=== PATIENT | male | born 1965 | race Caucasian/White ===

== ENCOUNTER → 2016-04-18 | Outpatient (CLI) | payer BC ==
--- NOTE | 2016-04-18 19:29 | CT ---
EXAMINATION TYPE: CT abdomen pelvis wo con DATE OF EXAM: 04/18/2016 7:22 PM COMPARISON: NONE HISTORY: Left lower Quadrant pain with bowel changes CT DLP: 677 mGycm Automated exposure control for dose reduction was used. TECHNIQUE: Helical acquisition of images was performed from the lung bases through the pelvis. FINDINGS: The lung bases are clear. There is no pleural effusion. Heart size is normal. There are numerous cysts throughout the liver that measure up to 2.5 cm. Bile ducts are not dilated. There is no sign of a pancreatic mass. Spleen appears normal. Gallbladder appears normal. There is no adrenal mass. Kidneys have normal size and contour. There is no hydronephrosis. There is no retroperitoneal adenopathy. There is no ascites. The appendix appears normal. I see no intestinal wall thickening. There are no dilated loops. There are mild prostatic calcifications. Bladder distend s smoothly. There is no evidence of pelvic mass. I see no bony destructive process.. IMPRESSION: NUMEROUS HEPATIC CYSTS. NO DILATED DUCTS. NORMAL APPENDIX. NO SIGN OF ACUTE ABDOMEN AND PELVIS.
== END | disposition home or self-care (01) ==
LOC: RADCTMAIN 04-17 18:30
PROVIDERS: ATTEND Family Medicine
DX: K76.89 Other specified diseases of liver (principal)
CPT/HCPCS: 74176

== ENCOUNTER → 2016-07-08 | Day surgery (SDC) | payer BC ==
[2016-07-03 15:11] VITALS: BMI 23.6
[~2016-07-08] MED LIST: GLYCOPYRROLATE 0.2 MG/ML 2 ML VIAL ONE; LACTATED RINGERS 1,000 ML IV SCH; LIDOCAINE 1% INJ 10MG/ML (20 ML MDV) ONE; PROPOFOL 10 MG/ML 20 ML VIAL IV ONE
[2016-07-08 09:55] VITALS: TEMP 98.1
--- NOTE | 2016-07-08 11:20 | P.GSHP ---
History of Present Illness H&P Date: 07/08/16 Chief Complaint: GERD, screening colonoscopy This is a 50-year-old male referred from Dr. Traore nc. Patient points of GERD. He presents today for EGD and screening colonoscopy. - Constitutional Constitutional: Reports as per HPI Past Medical History Past Medical History: No Reported History Additional Past Medical History / Comment(s): pain LLQ Abdomen History of Any Multi-Drug Resistant Organisms: None Reported Past Surgical History: Orthopedic Surgery Additional Past Surgical History / Comment(s): lt hand surgery, bijal. carpal tunnel, rt shoulder scope Past Anesthesia/Blood Transfusion Reactions: No Reported Reaction Smoking Status: Former smoker Past Alcohol Use History: Daily Additional Past Alcohol Use History / Comment(s): smoked 6-7 years 1ppd quit 8- 10 years ago, after quiting smoking used snuff until 2016. drinks 4 beers/day Past Drug Use History: None Reported - Past Family History Brother(s) Family Medical History: Cancer, Deep Vein Thrombosis (DVT) Medications and Allergies Home Medications Medication Instructions Recorded Confirmed Type No Known Home Medications [No 07/03/16 07/08/16 History Known Home Medications] Allergies Allergy/AdvReac Type Severity Reaction Status Date / Time No Known Allergies Allergy Verified 07/08/16 09:52 Surgical - Exam Vital Signs Temp Pulse Resp BP Pulse Ox 98.1 F 57 L 16 152/90 98 07/08/16 09:54 07/08/16 09:54 07/08/16 09:54 07/08/16 09:54 07/08/16 09:54 - General well developed, no distress - Eyes PERRL - ENT normal pinna - Neck no masses - Respiratory normal expansion - Cardiovascular Rhythm: regular - Abdomen Abdomen: soft, non tender Assessment and Plan Plan: GERD. We'll perform EGD. We'll also perform screening colonoscopy
--- NOTE | 2016-07-08 11:45 | P.OP ---
Date of Procedure: 07/08/16 Preoperative Diagnosis: GERD Screening colonoscopy Postoperative Diagnosis: Mild antral gastritis No evidence of hiatal hernia Normal colon Procedure(s) Performed: EGD Colonoscopy Anesthesia: MAC Surgeon: Sharath Major Pathology: other (Antrum) Condition: stable Disposition: PACU Description of Procedure: PROCEDURE: The patient was placed on the endoscopy table in the lateral position. Digital rectal examination was performed which revealed no abnormalities. The prostate was symmetrical without nodules. Flexible colonoscope was then placed in the patient's anus and passed throughout the entire colon. The ileocecal valve was visualized. The cecum, ascending, transverse, descending and sigmoid colon were normal. The rectum was normal as well. There were no masses, polyps or diverticula noted in the entire colon. Next the gastroscope some placed oropharynx and passed into the esophagus and into the stomach. The scope was then placed through the pylorus. The first and second portion of the duodenum appeared normal. The scope was then brought back the antrum and this appeared mildly inflamed. A biopsy was performed. The scope was then retroflexed and the remainder stomach appeared normal. There is no significant hiatal hernia. The GE junction was at 47 is. The distal esophagus appeared mildly inflamed a biopsies was performed. The proximal esophagus. Normal. Scope was withdrawn for patient.
[2016-07-08 12:09] VITALS: RESP 16
[2016-07-08 12:51] VITALS: BP 115/75; PULSE 48
--- NOTE | 2016-07-09 08:39 | NM ---
EXAMINATION TYPE: NM hepatobiliary w EF DATE OF EXAM: 07/08/2016 3:49 PM COMPARISON: NONE HISTORY: Pain TECHNIQUE: After the intravenous administration of 5.4 mCi Tc 99m Mebrofenin hepatobiliary scintigrap hy is performed. Immediate images post injection. FINDINGS: There is satisfactory initial accumulation of tracer by the liver. The gallbladder is visualized wit hin 30 minutes. The small bowel activity is noted post 60 minutes. At one hour 8 ounces of oral ens ure plus is given to mimic CCK and gallbladder ejection fraction is calculated at 84 %, in the normal range. Therefore there is no scintigraphic evidence of cystic or common bile duct obstruction to walker ggest acute cholecystitis or gallbladder dyskinesia. IMPRESSION: 1. No diagnostic evidence of cholecystitis 2. Delayed biliary to bowel transit. 3. Ejection fraction of 84% which can occasionally be seen with hyperdynamic gallbladder. Correlate c linically.
== END | disposition home or self-care (01) ==
LOC: ORWHC2ENDO 08:38
PROVIDERS: ATTEND Surgery
DX: Z12.11 Encounter for screening for malignant neoplasm of colon (principal); K29.50 Unspecified chronic gastritis without bleeding; R52 Pain, unspecified; Z87.891 Personal history of nicotine dependence
CPT/HCPCS: 88305; 88342; 78226; 43239; A9537; J2001; J2704; G0121

== ENCOUNTER 2016-08-05 08:16 | Day surgery (SDC) | payer BC ==
[2016-08-01 09:05] VITALS: BMI 23.6
[~2016-08-05 08:16] MED LIST changes: +DEXAMETHASONE SOD PHOSPHATE 10 MG/ML 1 ML VIAL IV ONE; -GLYCOPYRROLATE 0.2 MG/ML 2 ML VIAL ONE; +HEPARIN SODIUM,PORCINE 5,000 UNIT/ML 1 ML VIAL SQ ONE; -LIDOCAINE 1% INJ 10MG/ML (20 ML MDV) ONE; +MIDAZOLAM 2 MG/2 ML VIAL IV PRN; +ONDANSETRON 4 MG/2 ML VIAL IVP ONE; -PROPOFOL 10 MG/ML 20 ML VIAL IV ONE; +SCOPOLAMINE 1.5MG/72HR PATCH TRANSDERM ONE; +ceFAZolin 2 GM in SODIUM CHLORIDE 0.9% 100 ML IVPB ONE
[2016-08-05] MEDS ORDERED: LIDOCAINE 1% 20 ML VIAL (10MG/ML) FOR IV START INTRADERMA ONE (09:05)
--- NOTE | 2016-08-05 09:56 | P.GSHP ---
History of Present Illness H&P Date: 08/05/16 Chief Complaint: Right upper quadrant pain This a 50-year-old male who presents today for laparoscopic cholecystectomy. Patient complaints of right upper quadrant pain. His recent HIDA scan showed abnormal ejection fraction. Past Medical History Past Medical History: Chest Pain / Angina, GERD/Reflux, Skin Disorder Additional Past Medical History / Comment(s): pain LLQ Abdomen, constipation, occ psoriasis, "I bleed easily when cut" History of Any Multi-Drug Resistant Organisms: None Reported Past Surgical History: Orthopedic Surgery Additional Past Surgical History / Comment(s): rt hand surgery, bijal. carpal tunnel, rt shoulder arthroscopy, colonoscopy Past Anesthesia/Blood Transfusion Reactions: Motion Sickness Past Psychological History: No Psychological Hx Reported Smoking Status: Former smoker Past Alcohol Use History: Daily Additional Past Alcohol Use History / Comment(s): smoked 6-7 years 1ppd quit 15 years ago, after quiting smoking used snuff until 2016. drinks 4 beers/day Past Drug Use History: None Reported - Past Family History Brother(s) Family Medical History: Cancer, Deep Vein Thrombosis (DVT) Medications and Allergies Home Medications Medication Instructions Recorded Confirmed Type No Known Home Medications [No 07/03/16 08/01/16 History Known Home Medications] Allergies Allergy/AdvReac Type Severity Reaction Status Date / Time No Known Allergies Allergy Verified 08/01/16 08:56 Surgical - Exam Vital Signs Temp Pulse Resp BP Pulse Ox 97.8 F 56 L 18 131/87 99 08/05/16 09:03 08/05/16 09:03 08/05/16 09:03 08/05/16 09:03 08/05/16 09:03 - General well developed, no distress - Eyes PERRL - ENT normal pinna - Neck no masses - Respiratory normal expansion - Cardiovascular Rhythm: regular - Abdomen Abdomen: soft, non tender Assessment and Plan Plan: Right upper quadrant pain Chronic closed as to We'll perform laparoscopic cholecystectomy
[2016-08-05] MEDS ORDERED: ROCURONIUM BROMIDE 10 MG/ML 10 ML VIAL IV ONE (10:10)
[2016-08-05] MEDS ORDERED: SUCCINYLCHOLINE CHLORIDE 100 MG/5 ML SYR IV ONE (10:10)
[2016-08-05] MEDS ORDERED: NEOSTIGMINE 1 MG/ML 10 ML VIAL ONE (10:10)
[2016-08-05] MEDS ORDERED: fentaNYL (PF) 50 MCG/ML 2 ML AMP ONE (10:10)
[2016-08-05] MEDS ORDERED: HYDROmorphone (PF) 1 MG/ML ONE (10:10)
[2016-08-05] MEDS ORDERED: GLYCOPYRROLATE 0.2 MG/ML 2 ML VIAL ONE (10:10)
[2016-08-05] MEDS ORDERED: MIDAZOLAM 2 MG/2 ML VIAL ONE (10:10)
[2016-08-05] MEDS ORDERED: PROPOFOL 10 MG/ML 20 ML VIAL IV ONE (10:10)
[2016-08-05] MEDS ORDERED: LIDOCAINE 1% INJ 10MG/ML (20 ML MDV) ONE (10:10)
[2016-08-05] MEDS ORDERED: KETOROLAC 30 MG/ML 1 ML VIAL ONE (10:10)
[2016-08-05] MEDS ORDERED: BUPIVACAIN-EPI 0.25%-1:200,000 30 ML VIAL SQ ONE (10:43)
[2016-08-05] MEDS ORDERED: LACTATED RINGERS 1,000 ML IV ONE (11:02)
--- NOTE | 2016-08-05 11:04 | P.OP ---
Date of Procedure: 08/05/16 Preoperative Diagnosis: Cholecystitis Postoperative Diagnosis: Cholecystitis Procedure(s) Performed: Laparoscopic cholecystectomy Implants: Anesthesia: JOANN Surgeon: Sharath Major Estimated Blood Loss (ml): 5 Pathology: other (Gallbladder) Condition: stable Disposition: PACU Indications for Procedure: Operative Findings: Description of Procedure: The patient was placed on the operating table. The patient received a general endotracheal tube anesthesia. The patients abdomen was prepped and draped in the usual sterile fashion. Through an infraumbilical stab incision, the fascia of the anterior abdominal wall was grasped with a pair of Kochers and then the Veress needle was placed in the peritoneal cavity. Position of the Veress needle was confirmed with positive drop test. The abdomen was then insufflated. After adequate insufflation, the 10 mm trocar was placed in the peritoneal cavity. Following this the laparoscope was placed in the peritoneal cavity. The patient was placed in the head-up, right side up position and then a 5 mm trocar was placed in the right lateral and right subcostal position under direct visualization. A 8 mm trocar was placed in the epigastric position. The gallbladder was grasped in the fundus and infundibulum. Traction on the gallbladder was placed in the lateral and the cephalad positions. The triangle of Calot was visualized.. The cystic duct was bluntly dissected until the union of the cystic duct and common bile duct was seen. The cystic duct was then divided and sealed with the Harmonic scissors. A PDS Endoloop was then placed throughout the cystic duct stump. The cystic artery divided and sealed with the Harmonic scissors. The gallbladder was then removed from the liver bed using Harmonic scissors. The gallbladder was then extracted through the epigastric port site. Operative field was checked for any bleeding spots and Harmonic scissors was used to coagulate the liver bed. The abdomen was irrigated. The trocars were removed. The skin was closed using interrupted 3-0 Vicryl suture. Dermabond dressing were applied. The patient tolerated the procedure well.
[2016-08-05 11:17] VITALS: TEMP 97.4
[2016-08-05] MEDS: HYDROmorphone 1 MG/ML 1 ML SYRINGE IVP PRN ×3 (11:33→11:55)
[2016-08-05 12:32] VITALS: RESP 16
[2016-08-05 12:48] VITALS: BP 134/90; PULSE 60
== END 2016-08-05 13:16 | disposition home or self-care (01) ==
LOC: OR 08:16
PROVIDERS: ATTEND Surgery
DX: K81.1 Chronic cholecystitis (principal); Z87.891 Personal history of nicotine dependence
CPT/HCPCS: 88304; 47562; J2250; J1644; J1100; J2710; J0690; J2405; J2001; J3010; J1885; J1170; J0330; J2704

== ENCOUNTER 2017-05-18 22:30 | Observation (INO) | payer BC ==
[2017-05-18] MEDS ORDERED: HEPARIN SODIUM,PORCINE 5,000 UNIT/ML 1 ML VIAL IV PRN (22:50)
[2017-05-18] MEDS ORDERED: ASPIRIN 81 MG PO STA (22:50)
[2017-05-18] MEDS ORDERED: HEPARIN SODIUM,PORCINE 5,000 UNIT/ML 1 ML VIAL IV STA (22:50)
[2017-05-18] MEDS ORDERED: NITROGLYCERIN SL TABS 0.4 MG TAB SUBLINGUAL PRN (22:50)
--- NOTE | 2017-05-18 22:53 | ED ---
General Adult HPI - General Chief complaint: Chest Pain Stated complaint: Chest Pain Time Seen by Provider: 05/18/17 22:50 Source: patient, EMS, RN notes reviewed, old records reviewed Mode of arrival: EMS Limitations: no limitations - History of Present Illness Initial comments: This is a 51-year-old male to the ER for evaluation. This patient is accepted for evaluation of chest pain. Patient presented to The hospital transferred to Hospital for further evaluation and management. Patient at this time states she has been is continuing to improve. He does have mild chest pain. No shortness of breath, patient currently on nitro drip, has no other complaints - Related Data Home Medications Medication Instructions Recorded Confirmed Multivitamins, Thera [Multivitamin 1 tab PO DAILY 05/18/17 05/18/17 (formulary)] Allergies Allergy/AdvReac Type Severity Reaction Status Date / Time No Known Allergies Allergy Verified 05/18/17 22:51 Review of Systems ROS Statement: Those systems with pertinent positive or pertinent negative responses have been documented in the HPI. ROS Other: All systems not noted in ROS Statement are negative. Past Medical History Past Medical History: Chest Pain / Angina, GERD/Reflux, Skin Disorder Additional Past Medical History / Comment(s): pain LLQ Abdomen, constipation, occ psoriasis, "I bleed easily when cut" History of Any Multi-Drug Resistant Organisms: None Reported Past Surgical History: Orthopedic Surgery Additional Past Surgical History / Comment(s): rt hand surgery, bijal. carpal tunnel, rt shoulder arthroscopy, colonoscopy Past Anesthesia/Blood Transfusion Reactions: Motion Sickness Past Psychological History: No Psychological Hx Reported Smoking Status: Former smoker Past Alcohol Use History: Daily Past Drug Use History: None Reported - Past Family History Brother(s) Family Medical History: Cancer, Deep Vein Thrombosis (DVT) General Exam Limitations: no limitations General appearance: alert, in no apparent distress Head exam: Present: atraumatic, normocephalic, normal inspection Eye exam: Present: normal appearance, PERRL, EOMI. Absent: scleral icterus, conjunctival injection, periorbital swelling ENT exam: Present: normal exam, mucous membranes moist Neck exam: Present: normal inspection. Absent: tenderness, meningismus, lymphadenopathy Respiratory exam: Present: normal lung sounds bilaterally. Absent: respiratory distress, wheezes, rales, rhonchi, stridor Cardiovascular Exam: Present: regular rate, normal rhythm, normal heart sounds. Absent: systolic murmur, diastolic murmur, rubs, gallop, clicks GI/Abdominal exam: Present: soft, normal bowel sounds. Absent: distended, tenderness, guarding, rebound, rigid Extremities exam: Present: normal inspection, full ROM, normal capillary refill. Absent: tenderness, pedal edema, joint swelling, calf tenderness Back exam: Present: normal inspection Neurological exam: Present: alert, oriented X3, CN II-XII intact Psychiatric exam: Present: normal affect, normal mood Skin exam: Present: warm, dry, intact, normal color. Absent: rash Course Vital Signs 05/18/17 22:31 Temperature 98.6 F Pulse Rate 67 Respiratory 20 Rate Blood Pressure 130/84 O2 Sat by Pulse 99 Oximetry - Reevaluation(s) Reevaluation #1: 05/18/17 22:52 Transfer paperwork is reviewed including negative troponin Medical Decision Making - Medical Decision Making 49 female the ER for evaluation of chest pain. Patient be admitted under ACS, unstable angina, cardiac observation Disposition Clinical Impression: Chest pain Disposition: ADMITTED IP TO THIS HOSP Condition: Undetermined Instructions: Chest Pain (ED) Referrals: Gavin Graham DO [Primary Care Provider] - 1-2 days
[2017-05-18] MEDS ORDERED: HEPARIN SOD,PORK IN 0.45% NACL 25,000 UNIT in 0.45% NACL 1 500ML.BAG IV SCH (23:00)
[2017-05-18 23:11] LABS: Basophils % (A) 0 %; Eosinophils # (A) 0.1 k/uL (0-0.7); Eosinophils % (A) 1 %; HCT 38.8 % (39.0-53.0); HGB 13.4 gm/dL (13.0-17.5); Lymphocytes # (A) 0.2 k/uL (1.0-4.8); Lymphocytes % (A) 2 %; MCHC 34.5 g/dL (31.0-37.0); MCV 89.8 fL (80.0-100.0); Mean Platelet Volume 7.3; Monocytes # (A) 0.3 k/uL (0-1.0); Monocytes % (A) 4 %; Neutrophils # (A) 7.8 k/uL (1.3-7.7); Neutrophils % (A) 93 %; Platelet Count 130 k/uL (150-450); RBC 4.32 m/uL (4.30-5.90); WBC 8.4 k/uL (3.8-10.6)
--- NOTE | 2017-05-18 23:19 | XR ---
EXAMINATION TYPE: XR chest 2V DATE OF EXAM: 05/18/2017 COMPARISON: 03/21/2015 HISTORY: Chest pain TECHNIQUE: Frontal and lateral views of the chest are obtained. FINDINGS: There is no heart failure nor confluent pneumonic infiltrate. Heart size is fairly normal. There are chest leads. Costophrenic angles are clear. Bony thorax appears intact. IMPRESSION: No active cardiopulmonary disease. Mild atheromatous change in thoracic aorta. No signif icant change compared to old exam.
[2017-05-18 23:26] LABS: ALT 420 U/L (21-72); AST 734 U/L (17-59); Albumin 3.4 g/dL (3.5-5.0); Alkaline Phosphatase 111 U/L (38-126); Anion Gap 9 mmol/L; Blood Urea Nitrogen 19 mg/dL (9-20); Calcium 8.5 mg/dL (8.4-10.2); Carbon Dioxide 25 mmol/L (22-30); Chloride 105 mmol/L (98-107); Glucose 149 mg/dL (74-99); INR 1.1 (<1.2); Lipase 95 U/L (23-300); Magnesium 1.9 mg/dL (1.6-2.3); Potassium 3.6 mmol/L (3.5-5.1); Prothrombin Time 10.5 sec (9.0-12.0); Sodium 139 mmol/L (137-145); Total Bilirubin 1.5 mg/dL (0.2-1.3); Total Protein 5.6 g/dL (6.3-8.2)
[2017-05-18 23:36] LABS: Partial Thromboplastin Time 21.2 sec (22.0-30.0)
[2017-05-18 23:38] LABS: Creatine Kinase 89 U/L (55-170)
[2017-05-18 23:52] LABS: Creatine Kinase MB 1.2 ng/mL (0.0-2.4); Troponin I <0.012 ng/mL (0.000-0.034)
[2017-05-19 00:35] VITALS: RESP 16
[2017-05-19 01:03] VITALS: BMI 20.7
[2017-05-19 04:50] LABS: Mean Platelet Volume 7.2; Platelet Count 126 k/uL (150-450)
[2017-05-19 05:08] LABS: Cholesterol 160 mg/dL (<200); HDL Cholesterol 102 mg/dL (40-60); LDL Cholesterol,Calculated 51 mg/dL (0-99); Triglycerides 37 mg/dL (<150)
[2017-05-19 05:10] LABS: Creatine Kinase 69 U/L (55-170)
[2017-05-19 05:23] LABS: Creatine Kinase MB 1.4 ng/mL (0.0-2.4); Troponin I <0.012 ng/mL (0.000-0.034)
[2017-05-19] MEDS ORDERED: ASPIRIN 325 MG TAB PO SCH (09:00)
[2017-05-19 11:57] VITALS: PULSE 68
--- NOTE | 2017-05-19 12:08 | CONS ---
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 He was transferred here from [facility]. Apparently, his son took him there because he had chest pain. Pain occurred at rest, intense, sharp and seemed to occur without obvious precipitating factors. There was some change in the intensity of pain with improvement of any changed positions on a couple of times, but then it came back again and so he went into [facility] and was then transferred here. At the time of my evaluation, he is pain-free, resting comfortably. His 2 sets of troponins are normal. EKG revealed sinus rhythm with some voltage criteria for LVH. No acute findings are noted. Chest x-ray was unremarkable. There were some chronic changes without any new significant findings. Laboratory data suggests that his 2 sets of troponins are normal and no other significant abnormalities. Patient does have an elevated liver function tests in the form of AST and ALT of 734 and 420. He drinks 3 to 4 beers on a daily basis. He does not smoke. PAST MEDICAL HISTORY: No known medical problems. He has had some carpal tunnel surgery and some knee surgery in the past. He is a hardworking person. SOCIAL HISTORY: Patient does not smoke, but drinks 4 beers a day on a regular basis and has abnormal liver function tests. PHYSICAL EXAMINATION: On examination, blood pressure is 118/70, pulse rate is 66 per minute. HEENT: Unremarkable. Fundus was not examined by me. Neck is supple. There is no JVD. I do not hear a carotid bruit. Heart exam reveals S1, S2 heard normally without rub, murmur or gallop. Lungs are clear. Abdomen is soft, nontender. Lower extremities reveal normal pulses, no edema. Central nervous system is normal grossly. IMPRESSION: 1. Atypical chest pain. 2. Probably alcoholic hepatitis. 3. History of alcoholism. RECOMMENDATION: I am recommending an echocardiogram and a stress echo and if these are normal, he can be discharged. Patient has been counseled regarding the need to quit smoking. The patient has been advised to quit alcohol intake. He has been informed regarding the abnormality on his liver function tests. If stress echo is normal, he can be discharged and follow up with his primary care physician in the [facility]. Thank you very much for the consult. MMODL / IJN: [id number] /
--- NOTE | 2017-05-19 14:14 | ECHOS ---
STRESS ECHOCARDIOGRAM INDICATIONS: Chest pain. MEDICATIONS: Multivitamin. BASELINE HEART RATE: 72 BASELINE BLOOD PRESSURE: 130/57 MAXIMUM HEART RATE: 142 MAXIMUM BLOOD PRESSURE: 187/78 85% MPHR: 143 100% MPHR: 168 METS: 14.9 MAXIMUM STAGE REACHED: 5 TOTAL EXERCISE TIME: 14:15 CLINICAL INFORMATION: Baseline EKG revealed normal sinus rhythm without significant ST-T changes. Patient walked for 14 minutes, 15 seconds achieved a maximal heart rate of 142 beats per minute which is 85% of predicted maximal. He developed fatigue, shortness of breath, but did not have any angina or arrhythmia. EKG did not reveal any ST-segment changes to indicate ischemia. By EKG revealed, this is a negative stress test without any evidence of stress-induced ischemia. Baseline echo images revealed normal wall motion and wall thickening of all segments. At peak exercise there was good augmentation of the wall motion and wall thickening of all segments suggesting that there is no evidence of any stress-induced ischemia on this study. IMPRESSION: 1. By EKG criteria, this is a negative stress with excellent exercise capacity. 2. Normal stress echocardiogram. The image quality was somewhat suboptimal. MMODL / IJN: [id number] /
[2017-05-19 15:22] LABS: ALT 580 U/L (21-72); AST 585 U/L (17-59); Albumin 3.4 g/dL (3.5-5.0); Alkaline Phosphatase 128 U/L (38-126); Anion Gap 11 mmol/L; Blood Urea Nitrogen 13 mg/dL (9-20); Calcium 8.6 mg/dL (8.4-10.2); Carbon Dioxide 27 mmol/L (22-30); Chloride 103 mmol/L (98-107); Glucose 101 mg/dL (74-99); Potassium 3.9 mmol/L (3.5-5.1); Sodium 141 mmol/L (137-145); Total Bilirubin 0.6 mg/dL (0.2-1.3); Total Protein 5.6 g/dL (6.3-8.2)
--- NOTE | 2017-05-19 15:43 | P.HPIM ---
History of Present Illness Patient is 51-year-old came in with comments of precordial chest pain started yesterday about 9/10 in severity now completely resolved and patient also some epigastric burning sensation unsure patient ate around the time patient's chest pain is a pressure-like sensation patient had a stress test that was negative patient's chest pain is nonpruritic in nature completely resolved now. And denied any associated diaphoresis shortness of breath. Patient apparently has a riding: Hernia occasionally causes bowel problems although there are no acute problems at this point of time patient was cleared by cardiology. Although patient has elevated liver enzymes never had hepatitis C, will obtain hepatitis panel repeat comprehensive metabolic profile make sure liver enzymes are not going up , patient had cholecystectomy in the past anyways we'll also obtain ultrasound of the abdomen to rule out choledocholithiasis if we're able to get it done today. Patient denied any abdominal pain Review of Systems REVIEW OF SYSTEMS: CONSTITUTIONAL: No fever, no malaise, no fatigue. HEENT: No recent visual problems or hearing problems. Denied any sore throat. CARDIOVASCULAR: No orthopnea, PND, no palpitations, no syncope. PULMONARY: No shortness of breath, no cough, no hemoptysis. GASTROINTESTINAL: No diarrhea, no nausea, no vomiting, no abdominal pain. Normoactive bowel sounds. NEUROLOGICAL: No headaches, no weakness, no numbness. HEMATOLOGICAL: Denies any bleeding or petechiae. GENITOURINARY: Denies any burning micturition, frequency, or urgency. MUSCULOSKELETAL/RHEUMATOLOGICAL: Denies any joint pain, swelling, or any muscle pain. ENDOCRINE: Denies any polyuria or polydipsia. The rest of the 14-point review of systems is negative. Past Medical History Past Medical History: Chest Pain / Angina, GERD/Reflux, Skin Disorder Additional Past Medical History / Comment(s): problems with diarrhea then constipation - never actually dx with IBS but thinks he may have, occ psoriasis , "I bleed easily when cut", left inguinal hernia History of Any Multi-Drug Resistant Organisms: None Reported Past Surgical History: Cholecystectomy, Orthopedic Surgery Additional Past Surgical History / Comment(s): rt hand surgery, bijal. carpal tunnel, rt shoulder arthroscopy, colonoscopy Past Anesthesia/Blood Transfusion Reactions: Motion Sickness Past Psychological History: No Psychological Hx Reported Smoking Status: Former smoker Past Alcohol Use History: Daily Additional Past Alcohol Use History / Comment(s): smoked 7-8 years 1ppd quit 2 yrs ago, after quiting smoking. drinks 2-3 beers every night Past Drug Use History: None Reported - Past Family History Brother(s) Family Medical History: Cancer, Deep Vein Thrombosis (DVT) Medications and Allergies Home Medications Medication Instructions Recorded Confirmed Type Multivitamins, Thera [Multivitamin 1 tab PO DAILY 05/18/17 05/18/17 History (formulary)] Omeprazole [PriLOSEC] 40 mg PO [id number] #14 capsule. 05/19/17 Rx Allergies Allergy/AdvReac Type Severity Reaction Status Date / Time No Known Allergies Allergy Verified 05/18/17 22:51 Physical Exam Vitals: Vital Signs Temp Pulse Pulse Resp BP BP Pulse Ox 05/19/17 12:00 68 16 05/19/17 11:56 98 F 68 16 124/76 98 05/19/17 08:00 98.3 F 62 16 112/70 97 05/19/17 03:57 98.0 F 70 16 116/70 98 05/19/17 03:25 64 16 05/19/17 00:33 98.2 F 65 16 115/74 95 05/19/17 00:30 66 16 05/19/17 00:13 67 20 130/84 99 05/18/17 22:31 98.6 F 67 20 130/84 99 Intake and Output 05/19/17 05/19/17 05/19/17 06:59 14:59 22:59 Intake Total 88.646 360 Balance 88.646 360 Intake: Intake, IV Titration 88.646 Amount Heparin Sod,Pork in 0.45% 88.646 NaCl 25,000 unit In 0.45 % NaCl 1 500ml.bag @ 12 UNITS/KG/HR 15.24 mls/hr IV .Q24H [facility] Rx#: [id number] Oral 360 Other: Voiding Method Toilet Toilet # Voids 3 4 Weight 63.5 kg 63.5 kg PHYSICAL EXAMINATION: GENERAL: The patient is alert and oriented x3, not in any acute distress. Well developed, well nourished. HEENT: Pupils are round and equally reacting to light. EOMI. No scleral icterus. No conjunctival pallor. Normocephalic, atraumatic. No pharyngeal erythema. No thyromegaly. CARDIOVASCULAR: S1 and S2 present. No murmurs, rubs, or gallops. PULMONARY: Chest is clear to auscultation, no wheezing or crackles. ABDOMEN: Soft, nontender, nondistended, normoactive bowel sounds. No palpable organomegaly. MUSCULOSKELETAL: No joint swelling or deformity. EXTREMITIES: No cyanosis, clubbing, or pedal edema. NEUROLOGICAL: Gross neurological examination did not reveal any focal deficits. SKIN: No rashes. Results CBC & Chem 7: 05/19/17 04:36 05/19/17 14:47 Labs: Abnormal Lab Results - Last 24 Hours (Table) 05/18/17 05/18/17 05/18/17 Range/Units 22:40 22:40 22:40 Hct 38.8 L (39.0-53.0) % Plt Count 130 L (150-450) k/uL Neutrophils # 7.8 H (1.3-7.7) k/uL Lymphocytes # 0.2 L (1.0-4.8) k/uL APTT 21.2 L (22.0-30.0) sec Creatinine 0.50 L (0.66-1.25) mg/dL Glucose 149 H (74-99) mg/dL Total Bilirubin 1.5 H (0.2-1.3) mg/dL AST 734 H (17-59) U/L ALT 420 H (21-72) U/L Alkaline Phosphatase (38-126) U/L Total Protein 5.6 L (6.3-8.2) g/dL Albumin 3.4 L (3.5-5.0) g/dL HDL Cholesterol (40-60) mg/dL 05/19/17 05/19/17 05/19/17 Range/Units 04:36 04:36 04:36 Hct (39.0-53.0) % Plt Count 126 L (150-450) k/uL Neutrophils # (1.3-7.7) k/uL Lymphocytes # (1.0-4.8) k/uL APTT 30.1 H (22.0-30.0) sec Creatinine (0.66-1.25) mg/dL Glucose (74-99) mg/dL Total Bilirubin (0.2-1.3) mg/dL AST (17-59) U/L ALT (21-72) U/L Alkaline Phosphatase (38-126) U/L Total Protein (6.3-8.2) g/dL Albumin (3.5-5.0) g/dL HDL Cholesterol 102 H (40-60) mg/dL 05/19/17 Range/Units 14:47 Hct (39.0-53.0) % Plt Count (150-450) k/uL Neutrophils # (1.3-7.7) k/uL Lymphocytes # (1.0-4.8) k/uL APTT (22.0-30.0) sec Creatinine 0.63 L (0.66-1.25) mg/dL Glucose 101 H (74-99) mg/dL Total Bilirubin (0.2-1.3) mg/dL AST 585 H (17-59) U/L ALT 580 H (21-72) U/L Alkaline Phosphatase 128 H (38-126) U/L Total Protein 5.6 L (6.3-8.2) g/dL Albumin 3.4 L (3.5-5.0) g/dL HDL Cholesterol (40-60) mg/dL Thrombosis Risk Factor Assmnt - Choose All That Apply Each Factor Represents 1 point: Age 41-60 years Thrombosis Risk Factor Assessment Total Risk Factor Score: 1 Thrombosis Risk Factor Assessment Level: Low Risk Assessment and Plan Plan: -Chest pain: Rule out acute coronary syndromes patient stresses is negative unsure of the exact etiology to the musculoskeletal of the aspirate is related patient will be given prescription for Prilosec for 14 days. -elevated liver enzymes workup with hepatitis panel ultrasound of the right upper quadrant to rule out choledocholithiasis and repeat liver enzymes to make sure they're not going up if liver enzymes are coming down is stable patient will be discharged to follow with PCP and the surgery as an outpatient -Gastroesophageal reflux disease
[2017-05-19 16:02] VITALS: BP 126/72; TEMP 98.2
[2017-05-19 20:02] LABS: Hepatitis A Antibody IgM Non-Reactive (Non-Reactive); Hepatitis B Core IgM Non-Reactive (Non-Reactive)
== END 2017-05-19 19:11 | disposition home or self-care (01) ==
LOC: EC 22:30 → 3SUR 22:50 → 3OBS 05-19 07:18
PROVIDERS: ADMIT Hospitalist; ATTEND Hospitalist
DX: R07.89 Other chest pain (principal); R94.5 Abnormal results of liver function studies; F10.20 Alcohol dependence, uncomplicated; K21.9 Gastro-esophageal reflux disease without esophagitis; L40.9 Psoriasis, unspecified; Z87.891 Personal history of nicotine dependence; Z83.2 Family history of diseases of the blood and blood-forming organs and certain disorders involving the immune mechanism; Z80.9 Family history of malignant neoplasm, unspecified
CPT/HCPCS: 96365 ×2; 99285 ×2; 96366 ×2; 36415; 93005; 93017; 93306; 93350; 83880; 80061; 80053 ×2; 80074; 82550 ×2; 82553 ×2; 83690; 83735; 84484 ×2; 85025; 85049; 85610; 85730 ×2; 87502; 71046; G0378 ×2; J1644 ×2

== ENCOUNTER → 2017-06-04 | Outpatient (CLI) | payer BC ==
--- NOTE | 2017-06-04 09:50 | US ---
EXAMINATION TYPE: US abdomen complete DATE OF EXAM: 06/04/2017 COMPARISON: NONE CLINICAL HISTORY: R94.5 Abnormal Liver [id number] fatigue. Known liver cysts and cholecystectomy EXAM MEASUREMENTS: Liver Length: 15.1 cm Gallbladder Wall: Surgically absent CBD: 1.1 cm Spleen: 10.6 cm Right Kidney: 12.5 x 5.1 x 5.0 cm Left Kidney: 12.7 x 4.9 x 6.6 cm Pancreas: wnl Liver: multiple cysts seen, largest noted at posterior right lobe = 2.2cm Gallbladder: Surgically absent Evidence for sonographic Montenegro's sign: no CBD: dilated Spleen: wnl Right Kidney: wnl Left Kidney: wnl Upper IVC: wnl Abd Aorta: wnl IMPRESSION: 1. Hepatic cysts. 2. Common bile duct slightly dilated for a postcholecystectomy patient. Normal less than or equal to 1.0 cm.
== END | disposition home or self-care (01) ==
LOC: RADUSWWP 08:03
PROVIDERS: ATTEND Family Medicine
DX: K76.89 Other specified diseases of liver (principal); R94.5 Abnormal results of liver function studies; R53.83 Other fatigue; Z90.49 Acquired absence of other specified parts of digestive tract
CPT/HCPCS: 76700

== ENCOUNTER → 2019-04-08 | Outpatient (CLI) | payer BC ==
[2019-04-08 12:04] VITALS: BP 133/83; PULSE 64; RESP 16
--- NOTE | 2019-04-09 09:59 | P.PAINCN ---
History of Present Illness - Reason for Consult Consult date: 04/08/19 - History of Present Illness This is a 53-year-old patient referred by Dr. Girard with a chief complaint of chronic pain in neck with radiation to and left shoulder. 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 It abated for some time, and then resumed approximately 5 months ago, again when he was hanging steel. Pain is rated as 8/10 with activity. Pain is worse with sleep, lifting, reaching out with his left hand and better with positioning. He denies numbness and tingling. He does note subjective left arm weaknessshe was able to do 20+ chin ups before and is now only able to do 4-5 chin ups. He is an active person and works out regularly. He has been to physical therapy, completed approximately 3 weeks ago, he does not believe he obtain any benefit from this. He was also placed on a steroid Dosepak which he states helped mildly. He has not undergone surgery in the past. He does not currently take any medications for pain. He was evaluated by Dr. Girard, orthopedic surgeon who referred him to our office for conservative management. In addition to above, 13-point review of systems is also negative for chest pain, shortness of breath, changes in vision, changes in hearing, new onset weakness, abdominal pain, extreme fatigue, malaise, fever, skin changes, homicidal or suicidal ideation, or bowel or bladder incontinence. He does complain of occasional diarrhea and heartburn. Physical exam: Vital Signs: Reviewed in EMR GENERAL: Well appearing, in no acute distress PSYCH: Mood and affect is appropriate. Awake, alert, and oriented SKIN: Skin color, texture, turgor normal, no rashes or lesions HEENT: Normocephalic, atraumatic. EOM intact CV: No pedal edema RESP: Respirations are unlabored, no audible wheezing GI: Abdomen non-distended MUSCULOSKELETAL: Bilateral upper extremity strength is normal and symmetric. No atrophy or tone abnormalities are noted. Neck: Tenderness to palpation over the left cervical paraspinous muscles. Spurling negative, Boyd's sign negative. No pain with neck flexion, extension, or lateral flexion. No obvious deformity or signs of trauma. Normal cervical lordotic curve and normal cervical spine range of motion Extremities: Peripheral joint ROM is full and pain free without obvious instability or laxity in all four extremities. No edema or skin discolorations noted. Of note, left shoulder movements are not painful, Rodriguez sign is negative on the left side. Gait: Gait is normal NEUR: Bilateral upper extremity coordination and muscle stretch reflexes are physiologic and symmetric. Negative clonus. No loss of sensation is noted. Cranial nerves are grossly intact. Imaging: MRI cervical spine done on 03/11/2019 shows moderate disc height loss at C5-6 and C6-C7. At C4-5 there is moderate right and minimal left neural foraminal narrowing, no spinal canal stenosis. At C5-6 broad-based disc bulge, mild spinal canal stenosis, severe right and moderate to severe left neuroforaminal narrowing, moderate facet hypertrophy. At C6-7 broad-based disc bulge with mild to moderate spinal canal stenosis and mild facet hypertrophy, severe left and moderate to severe right neuroforaminal narrowing. MRI left shoulder shows supraspinatus tendinopathy, anterior impingement, biceps tendinopathy without tear, anterior inferior labrum tear. Assessment: 1. Cervical degenerative disc disease 2. Cervicalgia 3. Cervical radicular pain 4. Cervical facet arthropathy 5. Left shoulder arthropathy Plan: 1. Explanation: Diagnoses, prognoses, and multiple treatment options including but not limited to physical therapy, interventional therapies, medication management and surgery were discussed with the patient and all questions were answered to the patient's satisfaction. We discussed that the majority of the symptoms are likely stemming from his cervical spine and unlikely to be originating from his shoulder. 2. Investigations: MRI cervical spine and left shoulder reviewed 3. Counseling: The patient was counseled on the importance of continued neck exercises 4. Procedures: We will schedule the patient for left paramedian C7-T1 epidural steroid injection. Risks and benefits were discussed with the patient. 5. Consultations: None 6. Medications: None 7. Disposition: For above-mentioned procedure Past Medical History Past Medical History: GERD/Reflux, Musculoskeletal Disorder, Osteoarthritis (OA), Skin Disorder Additional Past Medical History / Comment(s): steroids Feb 2019, hx IBS, occ psoriasis, left inguinal hernia, chronic neck pain, has been told has very low resting heart rate(40s) History of Any Multi-Drug Resistant Organisms: None Reported Past Surgical History: Cholecystectomy, Orthopedic Surgery Additional Past Surgical History / Comment(s): rt hand surgery, bijal. carpal tunnel, rt shoulder arthroscopy, colonoscopy, right knee arthroscopy Past Anesthesia/Blood Transfusion Reactions: Motion Sickness Smoking Status: Former smoker - Past Family History Brother(s) Family Medical History: Cancer, Congestive Heart Failure (CHF), Deep Vein Thrombosis (DVT) Medications and Allergies Home Medications Medication Instructions Recorded Confirmed Type No Known Home Medications 04/06/19 04/06/19 History Allergies Allergy/AdvReac Type Severity Reaction Status Date / Time No Known Allergies Allergy Verified 04/06/19 14:29 PQRS Measure Charge Sheet Measure #130: Documentation of Current Meds in Medical Chart: Patient's medications documented in chart Measure #226: Tobacco Use: Screen & Cessation Intervention: Pt not a tobacco user Measure #111: Pneumonia Vaccination: Pneumococcal vaccine NOT administered or previously given Measure #47: Advance Care Plan: Advance care planning discussed & documented, pt chose/unable to give Measure #412: Opioid Treatment Agreement: No documentation of signed opioid treatment agreement Measure #408: Opioid Therapy Follow-up Evaluation: Patient had NO f/u eval minimum every 3 months during opioid therapy Measure #317: Preventitive Care & Scrn High Bld Press & F/U: Blood pressure not documented, patient not eligible Measure #128: Body Mass Index (BMI) Screening & Follow-up: BMI documented within normal parameters Measure #131: Pain Assessment & Follow-up: Pain positive & plan documented, Follow-up scheduled Measure #431: Unhealthy Alcohol Use Preventative Care & Scrn: Patient not identified as an unhealthy alcohol user PQRS Narrative: Smoking Status Former smoker Scale Used Numeric (1 - 10) Hx Alcohol Use (MH) Yes Home Medications: Ambulatory Orders No Known Home Medications 04/06/19
== END | disposition home or self-care (01) ==
LOC: PNWHC3 11:30
PROVIDERS: ATTEND Anesthesiology
DX: M50.10 Cervical disc disorder with radiculopathy, unspecified cervical region (principal); M46.92 Unspecified inflammatory spondylopathy, cervical region; M19.012 Primary osteoarthritis, left shoulder; Z87.891 Personal history of nicotine dependence
CPT/HCPCS: 99201

== ENCOUNTER 2019-04-22 06:18 | Day surgery (SDC) | payer BC ==
[2019-04-21 11:16] VITALS: BMI 23.6
[~2019-04-22 06:18] MED LIST changes: -DEXAMETHASONE SOD PHOSPHATE 10 MG/ML 1 ML VIAL IV ONE; -HEPARIN SODIUM,PORCINE 5,000 UNIT/ML 1 ML VIAL SQ ONE; -MIDAZOLAM 2 MG/2 ML VIAL IV PRN; -ONDANSETRON 4 MG/2 ML VIAL IVP ONE; -SCOPOLAMINE 1.5MG/72HR PATCH TRANSDERM ONE; -ceFAZolin 2 GM in SODIUM CHLORIDE 0.9% 100 ML IVPB ONE
[2019-04-22 06:42] VITALS: RESP 16; TEMP 97.9
[2019-04-22] MEDS ORDERED: LIDOCAINE 1% 20 ML VIAL (10MG/ML) FOR IV START INTRADERMA ONE (06:50)
[2019-04-22] MEDS ORDERED: IOPAMIDOL M200 10 ML VIAL ONE (07:40)
[2019-04-22] MEDS ORDERED: MIDAZOLAM 2 MG/2 ML VIAL ONE (07:40)
[2019-04-22] MEDS ORDERED: DEXAMETHASONE SOD PHOSPHATE 10 MG/ML 1 ML VIAL ONE (07:40)
[2019-04-22] MEDS ORDERED: fentaNYL (PF) 50 MCG/ML 2 ML AMP ONE (07:40)
--- NOTE | 2019-04-22 07:53 | P.PCN ---
Date of Procedure: 04/22/19 Procedure(s) Performed: . PROCEDURE 1. Cervical epidural steroid injection under fluoroscopic guidance, C7-T1 (fluoroscopy images available in the radiology department ) 2. Cervical epidurogram. PREOPERATIVE DIAGNOSIS: 1- Cervical Degenerative Disc Diseases 2- Cervical radiculopathy., 3-cervical spondylosis with cervical Facet arthropathy without myelopathy POSTOPERATIVE DIAGNOSIS: : 1- Cervical Degenerative Disc Diseases , 2- Cervical radiculopathy. 3-,cervical spondylosis with cervical Facet arthropathy without myelopathy ANESTHESIA: Local anesthesia with lidocaine 1 % , and moderate sedation, with Versed 2 mg, and Fentanyl 50 mcg. EBL 0 PROCEDURE INDICATION: The patient with neck pain and radiculitis unresponsive to conservative treatment consents for procedure. PROCEDURE DESCRIPTION / TECHNIQUE: The patient was seen and identified in the preoperative area. Risks, benefits, complications, including but not limited to infections ,bleeding , allergic reactions to the medications ,and not complete pain releife, and alternatives were discussed with the patient, the patient agreed to proceed with the procedure and signed the consent. Patient was taken to the OR and time out was completed. The patient was placed in the prone position on the procedure table. A pillow was placed under the patients chest to increase the cervical interlaminar space. The cervical area was prepped and draped in the usual sterile fashion. Vital signs were closely monitored during the procedure. Conscious sedation was used during the procedure to decrease patients anxiety. Using anterior-posterior fluoroscopy, the C7-T1 interlaminar space was identified and the skin over this site was marked and then infiltrated with 1% lidocaine subcutaneously. Subsequently, a 20-gauge 3-1/2-inch Tuohy epidural needle was inserted and advanced toward the epidural space by means of the ``hanging-drop technique and guided by AP and lateral fluoroscopy. The correct needle position in the epidural space was verified with the injection of 2 mL of the water soluble contrast dye Isovue-200 and observing an excellent epidurogram with the epidural spread of the dye, after negative aspiration for blood and CSF and in the absence of paresthesias. Again after negative aspiration, mixture containing 20 mg Dexamethasone and 2 ml of preservative- free normal saline injected and a washout of epidurogram was seen. Needle was withdrawn intact, skin was cleansed, and bandages were applied. Complications= none. Disposition= patient was placed in supine position and transferred to the recovery room area in stable condition and there was no evidence of upper or lower extremity motor or sensory deficit after the procedure patient was discharged from recovery room after discharge criteria met and home discharge instructions was given by the staff and patient will follow with the pain clinic in 2-4 weeks
[2019-04-22] MEDS ORDERED: IV FLUID CONTINUATION 1,000 ML IV ONE (07:58)
[2019-04-22 08:03] VITALS: PULSE 64
[2019-04-22 08:16] VITALS: BP 124/78
--- NOTE | 2019-04-22 08:20 | FL ---
Fluoroscopy HISTORY: Pain 2 seconds fluoroscopy time supplied to the referring clinician. 1 intraoperative C-arm images docume nt the procedure. See dictated report from anesthesia.
== END 2019-04-22 08:28 | disposition home or self-care (01) ==
LOC: ORPAIN 06:18
PROVIDERS: ATTEND Specialist
DX: M47.22 Other spondylosis with radiculopathy, cervical region (principal); M50.10 Cervical disc disorder with radiculopathy, unspecified cervical region
CPT/HCPCS: 62321; J2250; J1100; J3010; Q9966

== ENCOUNTER 2019-07-30 09:23 | Emergency (ER) | payer BC, OTHER ==
[2019-07-30 09:32] VITALS: RESP 18; TEMP 98
--- NOTE | 2019-07-30 10:46 | CT ---
EXAMINATION TYPE: CT soft tissue neck w con DATE OF EXAM: 07/30/2019 HISTORY: Pain Lt neck COMPARISON: NONE CT DLP: 219 mGycm. Automated Exposure Control for Dose Reduction was Utilized. TECHNIQUE: CT scan of the neck is performed with IV Contrast, patient injected with 100 mL of Isovue 300, axial images are obtained, coronal and sagittal reformatted images are reviewed. FINDINGS: Airway: Left-sided tonsilloliths noted. Multiple dental fillings creates spray artifact and partially secure dressings surrounding visualization. Parotid/submandibular glands: No gross abnormality seen. Carotid/Vascular Structures: Conventional three-vessel branch pattern of the aortic arch seen. Domina nce of the left vertebral artery. No hemodynamically significant stenosis of the major arterial vascu lature of the neck. Osseous Structures: Mild mucosal thickening of the ethmoid, left maxillary and sphenoid sinuses. Poly poid morphology mucosal thickening of the left maxillary sinus. Mastoid air cells are well aerated an d their visualized portions. No acute displaced fracture seen. Osseous cyst of C6. Very mild grade 1 anterolisthesis of C2 on C3 is likely degenerative. Mild to moderate degenerative disc disease of the spine with at least disc bulges at C5-C6 and C6-C7 and multilevel uncovertebral hypertrophy, facet a rthropathy, intervertebral disc space narrowing, endplate sclerosis and small anterior osteophytes. S elias canal and evaluation for disc herniation is limited on CT. Other: Minimal nodular biapical pleural-parenchymal thickening. Subcentimeter nodules on the left cou ld be further evaluated with full chest CT. IMPRESSION: 1. No acute displaced fracture of the neck in this posttraumatic patient. Moderate disc disease of th e spine with multilevel at least disc bulges if not herniations that could be evaluated with MRI. Gra de 1 anterolisthesis of C2 on C3 is likely degenerative. No abnormal prevertebral soft tissue. 2. No vascular injury of the neck seen. 3. Minimal nodular biapical pleural parenchymal scarring. Nodules on the left are more pronounced baron n on the right and could be followed with nonemergent follow-up chest CT for further evaluation.
--- NOTE | 2019-07-30 11:07 | ED ---
General Adult HPI - General Chief complaint: Neck Pain/Injury Stated complaint: Back/neck injury, IHS? Time Seen by Provider: 07/30/19 09:34 Source: patient, RN notes reviewed Mode of arrival: ambulatory Limitations: no limitations - History of Present Illness Initial comments: 53-year-old male presents to the emergency department for a chief complaint of neck injury. Patient states yesterday he was at work and he was leaning over a railing. Patient states that the pressing down on his neck. Patient states he was pinned like this for about a minute and a half. Patient states his complaint is a sore throat but denies any difficulty swallowing. Denies any swelling of his neck. Patient states he actually feels better but it was work- related so he wanted to get checked out. Patient denies any posterior or midline neck pain.Patient has no other complaints at this time including shortness of breath, chest pain, abdominal pain, nausea or vomiting, headache, or visual changes. - Related Data Home Medications Medication Instructions Recorded Confirmed Ibuprofen [Advil] 200 mg PO Q8HR PRN 05/10/19 05/10/19 Allergies Allergy/AdvReac Type Severity Reaction Status Date / Time No Known Allergies Allergy Verified 07/30/19 09:32 Review of Systems ROS Statement: Those systems with pertinent positive or pertinent negative responses have been documented in the HPI. ROS Other: All systems not noted in ROS Statement are negative. Past Medical History Past Medical History: GERD/Reflux, Osteoarthritis (OA), Skin Disorder Additional Past Medical History / Comment(s): steroids Feb 2019, hx IBS, occ psoriasis, left inguinal hernia, chronic neck pain, has been told has very low resting heart rate(40s), recent sinus infection-was on rx and now resolved History of Any Multi-Drug Resistant Organisms: None Reported Past Surgical History: Cholecystectomy, Orthopedic Surgery Additional Past Surgical History / Comment(s): rt hand surgery, bijal. carpal tunnel, rt shoulder arthroscopy, colonoscopy, right knee arthroscopy Past Anesthesia/Blood Transfusion Reactions: Motion Sickness Past Psychological History: No Psychological Hx Reported Smoking Status: Former smoker - Past Family History Brother(s) Family Medical History: Cancer, Congestive Heart Failure (CHF), Deep Vein Thrombosis (DVT) General Exam Limitations: no limitations General appearance: alert, in no apparent distress Head exam: Present: atraumatic, normocephalic, normal inspection Eye exam: Present: normal appearance, PERRL, EOMI. Absent: scleral icterus, conjunctival injection, periorbital swelling ENT exam: Present: normal exam, mucous membranes moist Neck exam: Present: normal inspection, tenderness (No tenderness of the cervical spine. Patient is very minimal tenderness on the left anterior SCM area. There is no ecchymosis or edema present.), full ROM. Absent: meningismus, lymphadenopathy Respiratory exam: Present: normal lung sounds bilaterally. Absent: respiratory distress, wheezes, rales, rhonchi, stridor Cardiovascular Exam: Present: regular rate, normal rhythm, normal heart sounds. Absent: systolic murmur, diastolic murmur, rubs, gallop, clicks GI/Abdominal exam: Present: soft, normal bowel sounds. Absent: distended, tenderness, guarding, rebound, rigid Neurological exam: Present: alert Course Vital Signs 07/30/19 09:29 Temperature 98.0 F Pulse Rate 64 Respiratory 18 Rate Blood Pressure 142/89 O2 Sat by Pulse 98 Oximetry Medical Decision Making - Medical Decision Making HPI and physical exam as documented. Exam of the neck reveals no ecchymosis, edema, abrasions, or lacerations. CT of the cervical spine with contrast shows no acute displaced fracture of the neck in this posttraumatic patient. There is moderate disc disease of the spine with multilevel at least disc bulges if not herniations that could be evaluated with MRI. Grade 1 anterior listhesis of C2 and C3 is likely degenerative. No abnormal prevertebral soft tissue. No vascular injury of the neck seen. Minimal nodular biapical pleural parenchymal scarring noted with nodules on the left more pronounced than the right. Discussed this with patient and he will follow-up with this. Reevaluated patient and he is well appearing, handling oral secretions without difficulty. Patient will be discharged home to follow up with primary care but I did discuss strict return parameters including swelling in the neck. Disposition Clinical Impression: Neck injury Disposition: HOME SELF-CARE Condition: Good Instructions (If sedation given, give patient instructions): Neck Pain (ED) Additional Instructions: Please take Motrin and Tylenol for pain. Please follow-up with primary care in 1-2 days. Make sure to follow up for degenerative disc disease in the neck as well as nodules in the lungs. If you have any worsening symptoms return to the emergency room. Is patient prescribed a controlled substance at d/c from ED?: No Referrals: Gavin Graham DO [Primary Care Provider] - 1-2 days Time of Disposition: 11:06
[2019-07-30 11:17] VITALS: BP 138/79; PULSE 66
== END 2019-07-30 11:15 | disposition home or self-care (01) ==
LOC: EC 09:23
DX: S19.9XXA Unspecified injury of neck, initial encounter (principal); X58.XXXA Exposure to other specified factors, initial encounter; Y92.69 Other specified industrial and construction area as the place of occurrence of the external cause; Y99.0 Civilian activity done for income or pay
CPT/HCPCS: 70491; 99283; Q9967

== ENCOUNTER → 2019-07-30 | Outpatient (CLI) | payer BC | END | disposition home or self-care (01) | LOC: LABWHC1 16:24 | PROVIDERS: ATTEND Orthopaedic Surgery | DX: Z53.9 Procedure and treatment not carried out, unspecified reason (principal) ==

== ENCOUNTER → 2019-08-17 | Outpatient (CLI) | payer BC ==
--- NOTE | 2019-08-18 08:58 | CT ---
EXAMINATION TYPE: CT chest wo con DATE OF EXAM: 08/17/2019 COMPARISON: CT abdomen 04/18/[address] neck 07/30/2019 HISTORY: 53-year-old male abnormal lung findings on prior CT scan. TECHNIQUE: Contiguous axial scanning of the chest without IV contrast. Coronal and sagittal reconstru ctions performed. CT DLP: 249.6 mGycm Automated exposure control for dose reduction was used. FINDINGS: Heart normal size without pericardial effusion. Mild LAD calcifications are present. Mildly ectatic ascending aorta 3.7 cm. Ectatic upper descending thoracic aorta 3.2 cm. Conventional a rch vessel branching anatomy. No thoracic lymphadenopathy by noncontrast technique. Minimal biapical pleural parenchymal scarring. No consolidation or pleural effusion. No suspicious pu lmonary nodules. Numerous hypodense lesions within the liver measuring up to 2.2 cm. Bones: Mild degenerative disc disease mid to lower thoracic spine with slight accentuated kyphosis. IMPRESSION: MINIMAL BIAPICAL PLEURAL-PARENCHYMAL SCARRING. NO SUSPICIOUS PULMONARY NODULES SEEN. REDEMONSTRATED NUMEROUS HEPATIC CYSTS MEASURING UP TO 2.2 CM.
== END | disposition home or self-care (01) ==
LOC: RADCTMAIN 18:53
PROVIDERS: ATTEND Physician Assistant Medical
DX: J98.4 Other disorders of lung (principal)
CPT/HCPCS: 71250

== ENCOUNTER → 2020-04-17 | Outpatient (CLI) | payer BC ==
--- NOTE | 2020-04-17 16:44 | XR ---
EXAMINATION TYPE: XR chest 2V DATE OF EXAM: 04/17/2020 COMPARISON: Chest x-ray 05/18/2017 HISTORY: Cough, history Covid TECHNIQUE: Frontal and lateral views of the chest are obtained. FINDINGS: There is no focal air space opacity, pleural effusion, or pneumothorax seen. The cardiac silhouette size is within normal limits. The osseous structures are intact, postop changes are note d to the cervical spine. There is a mild spinal curvature. IMPRESSION: No acute cardiopulmonary process.
== END | disposition home or self-care (01) ==
LOC: RADXRYALE 15:45
PROVIDERS: ATTEND Physician Assistant Medical
DX: R05 Cough (principal); Z86.16 Personal history of COVID-19
CPT/HCPCS: 71046

== ENCOUNTER → 2020-07-21 | Outpatient (CLI) | payer BC ==
--- NOTE | 2020-07-22 02:48 | MR ---
EXAMINATION TYPE: MR lumbar spine wo con DATE OF EXAM: 07/21/2020 COMPARISON: None HISTORY: LBP, BLE radiculopathy Multiplanar multiecho imaging of the lumbar spine was performed with no contrast. Lumbar vertebra have normal alignment. There is some narrowing and decreased signal in the disks from L1 to L5. There is small posterior disc bulging and herniation from L1 to L5. There is developmental ly adequate spinal canal and no significant spinal stenosis. There is no compression fracture. The ne ural foramina are fairly well-maintained. I see no bony destructive process. There is no paraspinal m ass. The sacroiliac joints are intact. IMPRESSION: Multilevel spondylotic changes with mild posterior disc bulging. No spinal stenosis. No fracture.
== END | disposition home or self-care (01) ==
LOC: RADMRIMAIN 19:57
PROVIDERS: ATTEND Psychiatry & Neurology Neurology
DX: M47.26 Other spondylosis with radiculopathy, lumbar region (principal); M51.16 Intervertebral disc disorders with radiculopathy, lumbar region
CPT/HCPCS: 72148

== ENCOUNTER → 2020-10-19 | Outpatient (CLI) | payer BC ==
--- NOTE | 2020-10-19 13:14 | XR ---
Cervical spine HISTORY: Bilateral arm numbness, postop, [id number] CDD W RADICULOPATHY 5 views of the cervical spine No comparisons Patient shows anterior cervical fusion and discectomy change at C5-C7. There is near-anatomic alignme nt, minimal anterolisthesis grade 1 C2-3. Facet arthropathy changes present. Cervical vertebral candie s show preserved height and bone mineralization. There is foraminal encroachment on the right at C4-5 and C5-6 and C6-7 and on the left at C5-6. C6-7 and C7-T1 are obscured. Odontoid view is somewhat li mited. Spondylosis is noted at inferior anterior margin of C4. IMPRESSION: Postop changes, degenerative disc disease, listhesis and foraminal encroachment, facet ar thropathy.
== END | disposition home or self-care (01) ==
LOC: RADXRYALE 11:07
PROVIDERS: ATTEND Physician Assistant
DX: M50.123 Cervical disc disorder at C6-C7 level with radiculopathy (principal); M43.12 Spondylolisthesis, cervical region; M47.22 Other spondylosis with radiculopathy, cervical region; M99.71 Connective tissue and disc stenosis of intervertebral foramina of cervical region; Z98.1 Arthrodesis status
CPT/HCPCS: 72050

== ENCOUNTER → 2020-12-22 | Outpatient (CLI) | payer BC ==
--- NOTE | 2020-12-22 16:28 | MR ---
EXAMINATION TYPE: MR cervical spine wo/w con DATE OF EXAM: 12/22/2020 COMPARISON: Plain film 10/19/2020 HISTORY: Neck pain, BUE tingling. Hx surgery 1 year ago. TECHNIQUE: Multiplanar, multisequence images of the cervical spine were acquired without contrast and with 7 mL intravenous Gadavist gadolinium contrast. Diffusion weighted imaging was performed. C2-C3: No evidence for degenerative disc disease. No disc bulge/herniation or protrusion. No Canal stenosis. Foramina are patent bilaterally. C3-C4: There is uncovertebral joint hypertrophy causing some foraminal encroachment on the right grea ter than left. Posterior disc bulge causes minimal anterior mass effect on the thecal sac. C4-C5: Uncovertebral joint hypertrophy results in bilateral foraminal encroachment. Posterior extensi on of endplate disc complex is somewhat eccentric towards the left causing anterolateral aspect of th e thecal sac, disc bulge is somewhat eccentric and may contact the anterolateral thecal sac. C5-C6: There is bilateral foraminal encroachment. Uncovertebral joint hypertrophy is noted, no eviden t disc herniation. C6-C7: No evidence of disc herniation. Uncovertebral joint hypertrophy results in bilateral foraminal encroachment. C7-T1: No evidence for degenerative disc disease. No disc bulge/herniation or protrusion. No Canal stenosis. Foramina are patent bilaterally. Cervical segments are intact. There is normal alignment. Cervical spinal cord is of normal signal. Craniovertebral junction relationships are within normal limits. Patient is status post anterior ce rvical fusion and discectomy at C5-C7, there is susceptibility artifact in the patient's hardware. Th ere is no abnormal enhancement following contrast administration. No significant spinal stenosis. IMPRESSION: Postoperative changes. Degenerative disc disease with disc herniation SPECT at C4-5, there is posteri or extension of endplates is complex with contact of the cervical cord seen best on sagittal image 7 of series 401
== END | disposition home or self-care (01) ==
LOC: RADMRIMAIN 15:27
PROVIDERS: ATTEND Orthopaedic Surgery Orthopaedic Surgery of the Spine
DX: M50.221 Other cervical disc displacement at C4-C5 level (principal); M50.321 Other cervical disc degeneration at C4-C5 level; Z98.1 Arthrodesis status
CPT/HCPCS: 72156

== ENCOUNTER → 2021-05-23 | Outpatient (CLI) | payer BC ==
--- NOTE | 2021-05-23 15:10 | XR ---
Abdomen HISTORY: [id number] SUPERFICIAL ABD FB, COLON FB Frontal view the abdomen submitted on 2 images and correlated to prior exam 01/22/2018 Lung bases are clear. There is no evident bowel obstruction or pneumoperitoneum. No pathologic calcif ication is seen. Degenerative disc change is again seen in the lumbar spine. Patient is status post l eft hip arthroplasty. IMPRESSION: no radio opaque foreign body seen, no evident obstruction.
== END | disposition home or self-care (01) ==
LOC: RADXRYALE 13:52
PROVIDERS: ATTEND Physician Assistant
DX: S30.85 Superficial foreign body of abdomen, lower back, pelvis and external genitals (principal); T18.4XXS Foreign body in colon, sequela; X58.XXXS Exposure to other specified factors, sequela
CPT/HCPCS: 74018

== ENCOUNTER → 2021-06-13 | Outpatient (CLI) | payer BC ==
--- NOTE | 2021-06-14 02:53 | MR ---
EXAMINATION TYPE: MR shoulder RT wo con DATE OF EXAM: 06/13/2021 COMPARISON: None HISTORY: Bilateral shoulder pain, BUE numbness. Multiplanar multiecho imaging of the right shoulder without contrast. The subscapularis tendon appears intact. Glenoid ai appear intact. There are some mild cystic painting ges at the greater tuberosity of the humerus and at the attachment of the subscapularis tendon. There is some widening of the AC joint space consistent with old ligamentous tear. No edema. There is full -thickness defect in the supraspinatus tendon anteriorly. No retraction. The infraspinatus tendon alma ears intact. There is no evidence of a fracture. There is mild spurring of the humeral head. IMPRESSION: There is full-thickness tear of the supraspinatus tendon anteriorly. No retraction. Degenerative cysts in the humeral head. Widening of the AC joint that measures 11 mm and consistent with old ligamentous tear. Osteoarthritic changes at the glenohumeral joint.
--- NOTE | 2021-06-14 03:09 | MR ---
EXAMINATION TYPE: MR shoulder LT wo con DATE OF EXAM: 06/13/2021 COMPARISON: None HISTORY: Bilateral shoulder pain, BUE numbness. Multiplanar multiecho imaging of the left shoulder without contrast. There is wavy appearance of the subscapularis tendon suggestive of partial tear. The biceps tendon is intact. The glenoid ai appear intact. There is some mild spurring of the humeral head there is na rrowing of the glenohumeral joint space. There is a large defect in the anterior aspect of the supras pinatus tendon related to full-thickness tear. There is no retraction. The infraspinatus tendon is in tact. There is no evidence of a fracture. There is mild spurring at the AC joint without significant subacromial impingement. There is no evidence of a fracture. IMPRESSION: Large full-thickness tear of the supraspinatus tendon anteriorly. Small shoulder joint effusion. Spurring at the AC joint without significant subacromial impingement. Osteoarthritis of the glenohumeral joint. Partial tear of the subscapularis tendon.
== END | disposition home or self-care (01) ==
LOC: RADMRIMAIN 16:11
PROVIDERS: ATTEND Physician Assistant Medical
DX: M75.121 Complete rotator cuff tear or rupture of right shoulder, not specified as traumatic (principal); M85.611 Other cyst of bone, right shoulder; M19.011 Primary osteoarthritis, right shoulder; M75.122 Complete rotator cuff tear or rupture of left shoulder, not specified as traumatic; M19.012 Primary osteoarthritis, left shoulder; M25.712 Osteophyte, left shoulder

== ENCOUNTER → 2022-01-29 | Outpatient (CLI) | payer BC ==
[2022-01-29 15:18] LABS: Basophils # (A) 0.03 X 10*3/uL (0.00-0.10); Basophils % (A) 0.6 %; Eosinophils # (A) 0.18 X 10*3/uL (0.04-0.35); Eosinophils % (A) 3.6 %; HCT 42.2 % (39.6-50.0); HGB 14.8 g/dL (13.0-17.0); Immature Grans, Automated 0.2 %; Lymphocytes # (A) 1.21 X 10*3/uL (0.90-5.00); Lymphocytes % (A) 23.9 %; MCH 32.1 pg (27.0-32.0); MCHC 35.1 g/dL (32.0-37.0); MCV 91.5 fL (80.0-97.0); Mean Platelet Volume 10.7 fL (9.5-12.2); Monocytes # (A) 0.36 X 10*3/uL (0.20-1.00); Monocytes % (A) 7.1 %; NRBC Per 100 WBC 0 /100 WBCS (0.0-0.0); Neutrophils # (A) 3.28 X 10*3/uL (1.80-7.70); Neutrophils % (A) 64.6 %; Platelet Count 154 X 10*3/uL (140-440); RBC 4.61 X 10*6/uL (4.40-5.60); RDW 12.6 % (11.5-14.5); WBC 5.07 X 10*3/uL (4.50-10.00)
[2022-01-29 15:30] LABS: African American GFR (CKD) 114.9 (60.0-200.0); Anion Gap 10.9 mmol/L (10.00-18.00); BUN/Creat Ratio 11.38 Ratio (12.00-20.00); Blood Urea Nitrogen 9.1 mg/dL (9.0-27.0); Calcium 9.4 mg/dL (8.7-10.3); Carbon Dioxide 27.1 mmol/L (20.0-27.5); Non-African American GFR(CKD) 99.2 (60.0-200.0); Potassium 4.2 mmol/L (3.5-5.5)
== END | disposition home or self-care (01) ==
LOC: LABPAT 10:15
PROVIDERS: ATTEND Orthopaedic Surgery
DX: Z01.812 Encounter for preprocedural laboratory examination (principal); M75.41 Impingement syndrome of right shoulder
CPT/HCPCS: 80048; 85025

== ENCOUNTER 2022-02-08 08:27 | Day surgery (SDC) | payer BC ==
[2022-02-06 11:20] VITALS: BMI 24.3
--- NOTE | 2022-02-07 12:18 | P.HPOR ---
History of Present Illness H&P Date: 02/07/22 Chief Complaint: Right shoulder pain The patient's a 56-year-old [id number] retired male who presents with progressive right shoulder pain for the past several years worsening recently. He's having pain with overhead activity and at night. Previously undergone rig ht shoulder surgery 15 years ago. He's tried therapy in addition to medications without much relief. He is having intermittent night symptoms. Review of Systems As per HPI Past Medical History Past Medical History: GERD/Reflux, Osteoarthritis (OA), Skin Disorder Additional Past Medical History / Comment(s): , hx IBS, occ psoriasis OCCASIONAL FLARE UPS , chronic neck pain, PREVIOUS LIVER DAMAGE", PAST HISTORY OF LOW HEART RATE History of Any Multi-Drug Resistant Organisms: None Reported Past Surgical History: Cholecystectomy, Joint Replacement, Orthopedic Surgery Additional Past Surgical History / Comment(s): rt hand surgery, bijal. carpal tunnel, rt shoulder arthroscopy, colonoscopy, right knee arthroscopy, TOTAL LEFT HIP, Past Anesthesia/Blood Transfusion Reactions: No Reported Reaction Additional Past Anesthesia/Blood Transfusion Reaction / Comment(s): CLAUSTROPHOBIA Smoking Status: Former smoker - Past Family History Brother(s) Family Medical History: Cancer, Congestive Heart Failure (CHF), Deep Vein Thrombosis (DVT) Medications and Allergies Home Medications Medication Instructions Recorded Confirmed Type Ibuprofen [Advil] 200 mg PO Q8HR PRN 05/10/19 02/06/22 History Allergies Allergy/AdvReac Type Severity Reaction Status Date / Time No Known Allergies Allergy Verified 07/30/19 09:32 Physical Examination - Shoulder right Appearance: previous incision Tenderness with palpation: anterior Pain: with forward flexion ROM: forward flexion: 140 degrees ROM: internal rotation: lower lumbar ROM: external rotation: 70 degrees Strength: forward flexion: 4/5 Strength: external rotation: 4/5 Tests: internal impingement tests: positive Results The patient is a well-developed [place] nail proximal 5 foot 9, 160 pounds of mesomorphic calves. HEENT exam is nonfocal, neck is supple. He is tender about the right shoulder anterior subacromial space. Moderate crepitus is noted. His distal neurovascular appears intact right upper extremity. - Diagnostic results Shoulder MRI: image reviewed (Shoulder MRI shows evidence of an anterior tear involving the supraspinatus.) Assessment and Plan Assessment: recurrent right rotator cuff tear Plan: I talked to the patient length regarding his condition along with treatment options. This point is quite limited because of pain both with overhead activity and at night despite conservative measure. After thorough discussion of procedure with surgery. We will plan to proceed with arthroscopic evaluation with probable revision subacromial decompression, rotator cuff repair versus debridement along with possible biceps tenotomy. Risks and benefits were discussed at length in layman's terms. We will likely perform that as an outpatient procedure.
[2022-02-08] MEDS ORDERED: SCOPOLAMINE 1 MG/72 HR PATCH TRANSDERM ONE (08:48)
[2022-02-08] MEDS ORDERED: HYDROmorphone 0.5 MG/0.5 ML SYRINGE IVP PRN (08:48)
[2022-02-08] MEDS ORDERED: DEXAMETHASONE SOD PHOSPHATE 4 MG/ML 1 ML VIAL IV ONE (08:48)
[2022-02-08] MEDS ORDERED: MIDAZOLAM 2 MG/2 ML VIAL IV PRN (08:48)
[2022-02-08] MEDS ORDERED: LACTATED RINGERS 1,000 ML IV SCH (08:48)
[2022-02-08] MEDS ORDERED: ONDANSETRON 4 MG/2 ML VIAL IVP ONE (08:48)
[2022-02-08] MEDS ORDERED: LACTATED RINGERS 1,000 ML IV ONE (09:33)
--- NOTE | 2022-02-08 10:05 | P.ANPRN ---
Procedure Note - Anesthesia - Nerve Block Performed Right Interscalene Single Time Out Performed: Yes ([id number]) Date of Procedure: 02/08/22 Procedure Start Time: : Procedure Stop Time: Location of Patient: PreOp Indication: Acute Post-Operative Pain, Requested by Surgeon Specifically requested for management of pain by : Jameson Fraser Sedation Type: Sedate with meaningful contact maintained Preparation: Sterile Prep Position: Supine Catheter: None Needle Types: Pajunk Needle Gauge: 21 Ultrasound used to visualize needle placement: Yes Ultrasound used to observe medication spread: Yes Injectate: 0.5% Ropivacaine (see comment for volume) (15cc + 10cc each side) Blood Aspirated: No Pain Paresthesia on Injection Noted: No Resistance on Injection: Normal Image Stored and Saved: Yes Events: Uneventful and Well Tolerated
[2022-02-08] MEDS ORDERED: ROCURONIUM 10 MG/ML (5 ML VIAL) IV ONE (10:08)
[2022-02-08] MEDS ORDERED: PROPOFOL 10 MG/ML 20 ML VIAL IV ONE (10:08)
[2022-02-08] MEDS ORDERED: ePHEDrine 50 MG/ML 1 ML VIAL ONE (10:08)
[2022-02-08] MEDS ORDERED: LIDOCAINE 2% INJ 20 MG/ML (2 ML VIAL) ONE (10:08)
[2022-02-08] MEDS ORDERED: SODIUM CHLORIDE 0.9% (PF) 10 ML VIAL ONE (10:08)
[2022-02-08] MEDS ORDERED: MIDAZOLAM 2 MG/2 ML VIAL ONE (10:08)
[2022-02-08] MEDS ORDERED: NEOSTIGMINE 1 MG/ML 10 ML VIAL ONE (10:08)
[2022-02-08] MEDS ORDERED: ROPIVACAINE 5 MG/ML 30 ML VIAL ONE (10:08)
[2022-02-08] MEDS ORDERED: PHENYLEPHRINE-0.9% NACL SYG 1,000 MCG/10 ML SYRINGE ONE (10:08)
[2022-02-08] MEDS ORDERED: SUCCINYLCHOLINE CHLORIDE 200 MG/10 ML VIAL IV ONE (10:08)
[2022-02-08] MEDS ORDERED: GLYCOPYRROLATE 0.2 MG/ML 2 ML VIAL ONE (10:08)
--- NOTE | 2022-02-08 11:33 | P.OP ---
Date of Procedure: 02/08/22 Preoperative Diagnosis: Recurrent right rotator cuff tear Postoperative Diagnosis: Same in addition to high-grade partial-thickness tear interarticular portion proximal biceps Procedure(s) Performed: Right shoulder arthroscopic subacromial decompression/rotator cuff repair/biceps tenotomy Implants: Arthrex 4.75 mm swivel lock anchor times one, 5.5 mm swivel lock anchor 1 Anesthesia: shukri DAVID Surgeon: Jameson Fraser [employer]icer [employer]aire[employer] #1: Mich Kenyon Estimated Blood Loss (ml): 10 Pathology: none sent Condition: stable Disposition: PACU Indications for Procedure: The patient's a 56-year-old male presents with progressive right shoulder pain despite conservative measures. A discussion of the risks and benefits of operative intervention versus continued conservative measures was made with the patient. He opted to proceed with surgery. Operative risks to include infection, neurovascular injury, development of blood clots, possible tendon rerupture, possible postoperative stiffness and need for subsequent procedures was discussed. Informed consent was obtained. Operative Findings: As below Description of Procedure: The patient was brought to the operating room, and after induction of general anesthesia was placed in a beachchair position. A preoperative interscalene block was placed for postoperative analgesia. I examined the right shoulder. There was no gross block to passive motion or gross glenohumeral instability. The right upper extremity was prepped and draped in normal fashion. The bony outlines the acromion, distal clavicle, and coracoid process were outlined with a skin marker. The glenohumeral joint was inflated with 50 mL of saline utilizing a spinal needle from posterior approach. A posterior portal was made through a 5 mm skin incision 1 cm medial and inferior to the posterior lateral border time. A blunt trocar was used to easily into the joint. Diagnostic arthroscopy was performed. An anterior portal was made just lateral to the coracoid process entering the joint above the subscapularis tendon. The subscapularis tendon appeared to be intact. Anterior labrum was intact. The inferior recess was inspected. The posterior labrum was intact. There was a high-grade partial-thickness tear of the long head of the biceps involving interarticular portion. It was elected to proceed with release at this point. This was released from the superior labrum with electrocautery and was allowed to retract to the bicipital groove. On inspection the rotator cuff, a high- grade partial-thickness tear involving the anterior aspect the supraspinatus was noted. This was completed with a motorized shaver the posterior portion the rotator cuff appeared to be intact. The arthroscope was placed into the subacromial space. A lateral portal was made 2 centimeters inferior to the anterior lateral border of the acromion. The soft tissue on the undersurface of the acromion was debrided with a motorized shaver and electrocautery clearly defining the anterior medial and lateral borders as well as the distal clavicle. An anterior inferior acromioplasty was performed with a motorized shahbaz starting anterolateral, then extending this posteriorly, then extending this medially. I converted to a flat acromion and this was verified in the posterior and lateral viewing portals. The rotator cuff was inspected. The anterior supraspinatus tear was identified and the soft tissue over the greater tuberosity was removed with a motorized shaver. This measured approximately 1-1/2 cm. The greater tuberosity was lightly decorticating with a shaver down to a bleeding bony surface. An accessory superior lateral portal was made just off the lateral edge of the acromion for anchor placement. A 4.75 mm swivel lock anchor was then placed just off the articular surface with the appropriate starting awl. Good purchase was obtained. These fiber tapes were then passed the rotator cuff with a scorpion suture passer. The central suture was also passed through the rotator cuff. A lateral row was created utilizing all 4 sutures. 5.5 mm swivel lock anchors was placed laterally. Good purchase was obtained. Final arthroscopic view showed adequate compression at the footprint. The arthroscope was then removed. The portals were closed with simple 3-0 nylon sutures. A sterile dressing was applied in addition to a sling. The patient was then awoken from general anesthesia and transferred to recovery room in good condition. Blood loss was estimated at 10 mL. No complications were incurred. Sponge and needle counts were correct in the case. Mich ASTUDILLO assisted and the major components of the case to include arm positioning, anchor placement, and rotator cuff repair.
[2022-02-08] MEDS ORDERED: IV FLUID CONTINUATION 1,000 ML IV ONE (11:43)
[2022-02-08 12:01] VITALS: TEMP 97
[2022-02-08 14:08] VITALS: RESP 16
[2022-02-08 14:09] VITALS: BP 132/74; PULSE 80
== END 2022-02-08 14:09 | disposition home or self-care (01) ==
LOC: OR 08:27
PROVIDERS: ATTEND Orthopaedic Surgery
DX: M75.111 Incomplete rotator cuff tear or rupture of right shoulder, not specified as traumatic (principal); K21.9 Gastro-esophageal reflux disease without esophagitis; M19.90 Unspecified osteoarthritis, unspecified site; K58.9 Irritable bowel syndrome, unspecified; Z90.49 Acquired absence of other specified parts of digestive tract; Z87.891 Personal history of nicotine dependence; Z79.1 Long term (current) use of non-steroidal anti-inflammatories (NSAID); Z82.49 Family history of ischemic heart disease and other diseases of the circulatory system
CPT/HCPCS: 64415; 76942; 29827; 29826; C1713 ×2; C1894; J2250; J0330; J1100; J2710; J2405; J0690; J2795; J2370; J2704; J2001

== ENCOUNTER → 2023-04-21 | Outpatient (CLI) | payer MEDICARE, OTHER ==
--- NOTE | 2023-04-23 12:55 | MR ---
EXAMINATION TYPE: MR cervical spine wo/w con DATE OF EXAM: 04/21/2023 3:30 PM CLINICAL INDICATION:Male, 57 years old with history of M51.36 OTHER INTERVERTEBRAL DISC DEGENERATION, LUM; PHH, Neck pain and numbness into both arms and hands x4 years, Hx Neck surgery COMPARISON: 12/22/2020. TECHNIQUE: Multi planar, multi sequence imaging was performed utilizing: T1-weighted, T2-weighted, an d turbo inversion recovery imaging of the cervical spine. IV Contrast: 7.5 cc Gadavist (none if empty) FINDINGS: Alignment: The cervical vertebral bodies have preserved heights. Alignment is within normal limits gi lino patient positioning. Bones: Postsurgical changes at C5-C6 and C7. Minimal osteophytes and disc space narrowing. No abnorma l postcontrast enhancement. Cord: The spinal cord is unremarkable with regards to their signal intensity and morphology. No abnor mal postcontrast enhancement. Discs: Multilevel disc desiccation is present. C2-C3: No significant disc pathology. The spinal canal is patent. Bilateral facet and uncovertebral joint arthropathy are present with mild left neural foraminal stenosis. The right neural foramen is p atent. C3-C4: No significant disc pathology. The spinal canal is patent. Bilateral facet and uncovertebral joint arthropathy are present with mild bilateral neural foraminal stenosis. C4-C5: A disc osteophyte complex is present which minimally narrows the ventral subarachnoid space. Bilateral facet and uncovertebral joint arthropathy are present with mild bilateral neural foraminal stenosis. C5-C6: No significant disc pathology. The spinal canal is patent. Bilateral facet and uncovertebral joint arthropathy are present with moderate right and mild to moderate left neural foraminal stenosis . C6-C7: No significant disc pathology. The spinal canal is patent. Bilateral facet and uncovertebral joint arthropathy are present with mild bilateral neural foraminal stenosis. C7-T1: No significant disc pathology. The spinal canal is patent. No neural foraminal stenosis. Other: None. IMPRESSION: 1. No evidence for disc herniation or significant spinal canal stenosis. 2. Surgical changes, there remains minimal disc degeneration with associated osteoarthritic changes. No significant neural foraminal stenosis.
== END | disposition home or self-care (01) ==
LOC: RADMRIMAIN 14:04
PROVIDERS: ATTEND Family Medicine
DX: M51.36 Other intervertebral disc degeneration, lumbar region (principal); M50.30 Other cervical disc degeneration, unspecified cervical region; R20.0 Anesthesia of skin
CPT/HCPCS: 72156; A9585

== ENCOUNTER → 2023-08-11 | Outpatient (CLI) | payer MEDICARE ==
--- NOTE | 2023-08-11 14:37 | CT ---
EXAMINATION TYPE: CT cervical spine wo con DATE OF EXAM: 08/11/2023 COMPARISON: MRI dated 04/21/2023 HISTORY: Presurgical planning CT DLP: 309.[address] of the cervical spine was performed with bone and soft tissue window settings submitted . Coronal and sagittal reconstruction is obtained. Postoperative changes of anterior cervical discectomy and fusion noted at C5-6 and C6-7. Anterior fix ation plate is noted to be in place as well as intervertebral spacers with normal postoperative align ment. There is mild posterior ridging noted. No recurrent disease is present. C2-3: Within normal limits C3-4: Within normal limits C4-5: Mild degenerative narrowing with ventral and dorsal spondylosis. Mild effacement of ventral the kathy sac. Left neural foraminal encroachment secondary to degenerative changes of the cervical apophys eal joints. IMPRESSION: 1. Postoperative changes of ACDF at C5-6 and C6-7. 2. Degenerative changes at C4-5 as noted.
== END | disposition home or self-care (01) ==
LOC: RADCTMAIN 12:24
PROVIDERS: ATTEND Orthopaedic Surgery
DX: M50.20 Other cervical disc displacement, unspecified cervical region (principal); M47.812 Spondylosis without myelopathy or radiculopathy, cervical region
CPT/HCPCS: 72125

== ENCOUNTER 2023-08-22 05:37 | Day surgery (SDC) | payer MEDICARE ==
[2023-08-18 14:23] VITALS: BMI 23.6
--- NOTE | 2023-08-22 04:15 | P.HPOR ---
History of Present Illness H&P Date: 08/15/23 .D:Date: 08/15/23 : 08:40am .T:Title: [facility] HISTORY AND PHYSICAL Age: 57 year Height: 5'9" Weight: 168 lbs BMI: 24.81 kg/m2 Occupation: [employer] VAS: 8 IMPRESSION: It was my pleasure to have seen and examined Jayant. I reviewed the patient's clinical syndrome, physical findings, and imaging studies during the appointment today. It is my impression that the patient has a diagnosis of. 1. 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 Left upper extremity radiculopathy 4. Left upper extremity weakness Spine Surgery Risk Review Mr. James is presenting for evaluation of neck and left upper extremity pain, left upper extremity numbness and tingling. It was my pleasure to have seen and examined Mr. James. In our visit today we have had a chance to go over subjective complaints, physical examination findings and treatments including the natural course history without intervention and various interventional options. The patients imaging demonstrates: XRAY Date: 01/31/2023 Location: [facility] Region: Cervical Views: ap/lat/flex/ext/obliq -Re-reviewed in office today. Previous surgical changes with hardware present at C5-C7. Screws and plates are intact with no migration or failure. alignment is preserved. No acute osseous abnormalities. MRI Date: Location: [facility] Region:Cervical Contrast:N Images reviewed. I disagree with the radiology read. My read as follows: C0-1 Stable No stenosis. No spondylosis C1-2 Stable no stenosis. No spondylosis C2-3 Trace anterior listhesis without stenosis, likely physiologic. No fracture or lesions. C3-4 Mild spondylosis and disc height loss. Mild disc bulge. No fracture C4-5 Adjacent segment disease with disc collapse, disc height loss and disc herniation paracentral to the left causing central and foraminal stenosis that is moderate and severe respectively. Moderate spondylotic changes with facet arthropathy noted and ligamental hypertrophy contributing to overall stenosis. There is moderate cord contact anterior from HNP. No myelomalacia. C5-6 Post surgical changes with anterior fusion construct in place. No evidence for any complicating process. No stenosis. C6-7 Post surgical changes with anterior fusion construct. No complicating process. No stenosis. Myelomalacia: Flow void noted at C4-5 level due to contact of cord. No true myelomalacia noted. Fracture: None Lesions: None Alignment: Kyphosis noted at C4-5 segmentally due to disc collapse and spondylosis. There is overall neutral alignment due to this collapse and the C3-4 mild spondylotic changes and disc height loss. C2-3 contributes to this alignment as well with the trace anterior listhesis noted. On physical exam, Mr. James demonstrates: A burning posterior neck pain that radiates down into the right upper extremity with a sharp, shooting quality. He states his left arm pain is associated with numbness and tingling. He notes progressive left upper extremity weakness. He notes bilateral shoulder pain, worse on the left compared to the right. He notes difficulty with fine motor skills of the left hand. He states he can hold and grasp objects, but is unable to flip pages of a book or open zip-lock bags. The patient states his current symptoms worsen after all activity. I have explained to the patient that as their condition progresses it will cause further neurological deficits and eventual paralysis. Based on the patients imaging, physical exam, and the rapid progression and disabling nature of their symptoms, at this time I recommend surgery in the form of a: C4-5 TOTAL DISC REPLACEMENT. I discussed the risk and benefits of this procedure at length with Mr. James. The patient agreed to considered pursuing the procedure abovementioned. Prior to surgery, she should follow up with her PCP (Cardio, ID, IM etc) for clearance. Questions were invited and answered, and the patient wishes to proceed as outlined below. Currently, I am recommendin.C4-5 TOTAL DISC REPLACEMENT 2.Follow up with PCP for surgical clearance 3.Review of surgical risks and benefits as well as an educational packet on the proposed surgical procedure. Risks: All surgical procedures come with inherent risks, including those related to positioning, anesthesia, intraoperative findings, and postoperative complications. It is important to understand that surgery does not come with any guarantee of a successful outcome as complications and adverse events are always possible. The patient was given a handout in office today discussing the surgical procedure and risks associated with the intervention, both of which were discussed with the patient. These risks include but are not limited to the following: * Experiencing same, different or even worse symptoms in back, neck, arms, or legs compared to before surgery. Requiring further surgery or other forms of treatment presently or at some time in the future at same or other levels of the intended spine surgery. On an extreme but fortunately relatively rare basis severe complication such as blindness, stroke, heart attack, temporary and/or permanent nerve injury, paralysis, coma, or may occur, sometimes without known explanation. Surgical complications may include but are not limited to risk of infection, fluid accumulation in the surgical dissection site, including a seroma or hematoma, that requires additional surgery, wound drainage, bleeding, new numbness or weakness, vision changes/loss, spinal fluid leakage, non-healing and/or infected incision, headaches, difficulty or inability to swallow, hoarseness, hemopneumothorax, pneumothorax, impotence, retrograde ejaculation, vaginal dryness; injury to nerves, spinal cord, blood vessels, lymphatics or other vital organs (i.e., bowel injury, injury to the great vessels); heterotopic bone formation; complications related to the hardware such as screws, rods, cages including misplaced hardware, device failure, instrumentation at the wrong spine level, hardware fracture/breakage, or hardware loosening; vertebral failure of the spinal column above or below the newly placed hardware; retained surgical instrumentations or devices and the need for further surgery. * Medical risks of the planned spine surgery include but are not limited to generalized Infections to the whole body or local areas outside of the surgical site (sepsis), heart attack, bleeding, anaphylaxis, meningitis, seizure, epilepsy, hearing loss, burn babb, laceration of the head or other areas of the body, bruising, hypersensitivity of the skin, bladder over distension; allergic reaction; shoulder injury related to positioning; fat, blood and air clots to other areas of the body like heart, lungs, brain; failure of internal organs such as lungs, kidneys, liver and excessive bleeding. If blood transfusions are necessary, note that transfusions may cause intolerance reactions such as anaphylaxis or other complex reactions. Despite best efforts, the results of spine surgery might not heal in terms of bone, soft tissues such as skin, fascia, ligaments, and joints. Additionally, in order to achieve best possible results, spine surgery may be carried out beyond the initially planned levels and involve decompression, fusion including insertion of hardware at levels other than the original intended area of surgical interest change some portions of the procedure in order to ensure the best possible outcomes. With spine surgery and spinal fusion, there are different off label uses of instrumentation (devices, implants and hardware) as well as biological substances (bone morphogenic proteins, demineralized bone matrix) as well as using extra bone from allograft sources (i.e. cadaver bone) or autograft (iliac crest bone, ribs, or the spine itself). The patient has been given information about these practices and their inherent risks and benefits. [facility] is an educational center that serves as a training facility for neurosurgical and orthopedic [employer] and Nursing students. Physician assistants are medically trained surgical providers who function in the outpatient, inpatient, and operating room setting under the direct supervision of the attending surgeon. [facility] has multiple operating rooms with single and overlapping room s running daily. They currently function under the required guidelines as produced by the [facility] Finance Committee with regards to the overlapping rooms and will continue to comply with changes to this policy as they occur. The requirements include and are complied with as follows: (1) the critical portions of the overlapping rooms will not occur at the same time, (2) the attending physician will be physically present during the critical portions of the procedure and immediately available during the entire case, and (3) a back-up attending is designated should the primary attending not be immediately available. The patient has had a chance to review all the listed information, has been given print outs detailing this information, and has had all his/her questions answered to their satisfaction. It was my pleasure to have seen and examined Mr. James. In our visit today we have had a chance to go over my understanding of our patient's current condition, the natural course history without intervention and various interventional options. Questions were invited and answered, and the patient wishes to proceed as outlined above. I have seen and examined the patient for 25 minutes and we have spent more than 50% of the time in repeat and detailed counseling about the patient's condition, its natural course history with out and as much as can be predicted with surgery and re-review of various surgical treatment options. In conclusion, Mr. James requested we proceed with the above suggested surgery and are willing to accept risks and limitations of the suggested surgery as nature of the disease process and our best attempts at treatment for the condition. Thank you again for allowing us to be part of your patient's care. Please don't hesitate to contact me if you have any further questions. Signed and authenticated by: [employer] P:\\\\ppart\\\\[id number]\\\\[id number] \\[id number]\\\\[id number]\\\\[id number] \\d Quincy Anne DO [facility] Spine Complex and Minimally Invasive Spine Surgery [address] [place], [place] [id number] FOLLOW UP: Post Procedure COMPLETE C SPINE X-RAYS AT POST OP APPOINTMENT (AP/LAT VIEWS) PATIENT EDUCATION: Medications Reviewed: YES In our visit today Mr. James and I have had a chance to go over my understanding of the patient's current condition, the natural course history without intervention and various interventional options. Questions were invited and answered, and the patient wishes to proceed as outlined above. I will be sure to keep you updated after Mr. James returns here for further follow-up. Thank you again for your referral. Please do not hesitate to contact me if you have any further questions. Signed and authenticated by: Quincy Anne DO [facility] Complex and Minimally Invasive Spine Surgery [address] [place], [place] [id number] This message is confidential, intended only for the named recipient(s) and may contain information that is privileged or exempt from disclosure under applicable law. If you are not the intended recipient(s), you are notified that the dissemination, distribution or copying of this information is strictly prohibited. If you received this message in error, please notify the sender then delete this message. # SIGNED BY Quincy Anne (GOO)08/17/2023 06:04PM Past Medical History Past Medical History: GERD/Reflux, Osteoarthritis (OA), Skin Disorder Additional Past Medical History / Comment(s): hx IBS, occ psoriasis, left inguinal hernia, chronic neck pain, has been told has very low resting heart rate(40s), History of Any Multi-Drug Resistant Organisms: None Reported Past Surgical History: Cholecystectomy, Joint Replacement, Orthopedic Surgery Additional Past Surgical History / Comment(s): rt hand surgery, bijal. carpal tunnel, rt shoulder arthroscopy, colonoscopy, right knee arthroscopy, LT CECIL, CERVICAL FUSION 2020, Past Anesthesia/Blood Transfusion Reactions: Motion Sickness Additional Past Anesthesia/Blood Transfusion Reaction / Comment(s): CLAUSTROPHOBIA Smoking Status: Former smoker - Past Family History Brother(s) Family Medical History: Cancer, Congestive Heart Failure (CHF), Deep Vein Thrombosis (DVT) Medications and Allergies Home Medications Medication Instructions Recorded Confirmed Type Gabapentin [Neurontin] 300 mg PO TID 08/18/23 08/18/23 History Allergies Allergy/AdvReac Type Severity Reaction Status Date / Time No Known Allergies Allergy Verified 08/18/23 14:06 Physical Examination Osteopathic Statement: *. No significant issues noted on an osteopathic structural exam other than those noted in the History and Physical/Consult. Assessment and Plan (1) Adjacent segment disease of cervical spine at C4-C5 level with history of fusion procedure Status: Acute Code(s): M50.321 - OTHER CERVICAL DISC DEGENERATION AT C4-C5 LEVEL; Z98.1 - ARTHRODESIS STATUS SNOMED Code(s): 701842846 (2) Cervical disc herniation Status: Acute Code(s): M50.20 - OTHER CERVICAL DISC DISPLACEMENT, UNSP CERVICAL REGION SNOMED Code(s): 302208348
[~2023-08-22 05:37] MED LIST changes: -LACTATED RINGERS 1,000 ML IV SCH; +TRANEXAMIC 1,000 MG/100ML-NACL 1,000 MG in SALINE 1 100ML.BAG IVPB PRN
[2023-08-22] MEDS: ONDANSETRON 4 MG/2 ML VIAL IVP PRN (06:53)
[2023-08-22] MEDS: ACETAMINOPHEN TAB 500 MG TAB PO PRN (06:53)
[2023-08-22] MEDS: GABAPENTIN 300 MG CAP PO PRN (06:54)
[2023-08-22] MEDS: LACTATED RINGERS 1,000 ML IV SCH (06:55)
[2023-08-22] MEDS: DEXAMETHASONE SOD PHOSPHATE 4 MG/ML 1 ML VIAL IVP STA (06:59)
[2023-08-22] MEDS ORDERED: MIDAZOLAM 2 MG/2 ML VIAL IV PRN (07:00)
[2023-08-22] MEDS ORDERED: HYDROmorphone 0.5 MG/0.5 ML SYRINGE IVP PRN (07:00)
[2023-08-22] MEDS: IV FLUID CONTINUATION 1,000 ML IV ONE ×2 (07:03)
[2023-08-22] MEDS ORDERED: NEOSTIGMINE 1 MG/ML 10 ML VIAL ONE (07:28)
[2023-08-22] MEDS ORDERED: PROPOFOL 10 MG/ML 20 ML VIAL IV ONE (07:28)
[2023-08-22] MEDS ORDERED: ROCURONIUM 10 MG/ML (5 ML VIAL) IV ONE (07:28)
[2023-08-22] MEDS ORDERED: MIDAZOLAM 2 MG/2 ML VIAL ONE (07:28)
[2023-08-22] MEDS ORDERED: LIDOCAINE 1% INJ 10MG/ML (20 ML MDV) ONE (07:28)
[2023-08-22] MEDS ORDERED: HYDROmorphone (PF) 1 MG/ML ONE (07:28)
[2023-08-22] MEDS ORDERED: fentaNYL (PF) 50 MCG/ML 2 ML AMP ONE (07:28)
[2023-08-22] MEDS ORDERED: KETAMINE HCL IN 0.9 % NACL 50 MG/5 ML SYRINGE ONE (07:28)
[2023-08-22] MEDS ORDERED: GLYCOPYRROLATE 0.2 MG/ML 2 ML VIAL ONE (07:28)
[2023-08-22] MEDS ORDERED: TRANEXAMIC 1,000 MG/100ML-NACL PREMIX BAG ONE (07:28)
[2023-08-22] MEDS ORDERED: KETOROLAC 30 MG/ML 1 ML VIAL ONE (07:28)
[2023-08-22] MEDS: THROMBIN (BOVINE) 5,000 UNIT VIAL TOPICAL ONE ×2 (07:54→08:15)
--- NOTE | 2023-08-22 09:38 | P.OP ---
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 C4-5 ANTERIOR CERVICAL ARTHRODESIS 2. C4-5 ANTERIOR INSTRUMENTATION 3. C4-5 INSERTION OF BIOMECHANICAL DEVICE, CAGE USE OF IONM USE OF IO MICROSCOPE Implants: 4 WEB 8 MM [address]AGE AND PL 14 MM SCREWS MAGNATOS Anesthesia: GETA Surgeon: Quincy Anne ([employer] FA) Estimated Blood Loss (ml): 50 IV fluids (ml): 1,100 Urine output (ml): 0 Pathology: none sent Condition: stable Disposition: PACU Indications for Procedure: Mr. James is presenting for evaluation of neck and left upper extremity pain, left upper extremity numbness and tingling. It was my pleasure to have seen and examined Mr. James. In our visit today we have had a chance to go over subjective complaints, physical examination findings and treatments including the natural course history without intervention and various interventional options. The patients imaging demonstrates: XRAY Date: 01/31/2023 Location: [facility] Region: Cervical Views: ap/lat/flex/ext/obliq -Re-reviewed in office today. Previous surgical changes with hardware present at C5-C7. Screws and plates are intact with no migration or failure. alignment is preserved. No acute osseous abnormalities. MRI Date: Location: [facility] Region:Cervical Contrast:N Images reviewed. I disagree with the radiology read. My read as follows: C0-1 Stable No stenosis. No spondylosis C1-2 Stable no stenosis. No spondylosis C2-3 Trace anterior listhesis without stenosis, likely physiologic. No fracture or lesions. C3-4 Mild spondylosis and disc height loss. Mild disc bulge. No fracture C4-5 Adjacent segment disease with disc collapse, disc height loss and disc herniation paracentral to the left causing central and foraminal stenosis that is moderate and severe respectively. Moderate spondylotic changes with facet arthropathy noted and ligamental hypertrophy contributing to overall stenosis. There is moderate cord contact anterior from HNP. No myelomalacia. C5-6 Post surgical changes with anterior fusion construct in place. No evidence for any complicating process. No stenosis. C6-7 Post surgical changes with anterior fusion construct. No complicating process. No stenosis. Myelomalacia: Flow void noted at C4-5 level due to contact of cord. No true myelomalacia noted. Fracture: None Lesions: None Alignment: Kyphosis noted at C4-5 segmentally due to disc collapse and spondylosis. There is overall neutral alignment due to this collapse and the C3-4 mild spondylotic changes and disc height loss. C2-3 contributes to this alignment as well with the trace anterior listhesis noted. On physical exam, Mr. James demonstrates: A burning posterior neck pain that radiates down into the right upper extremity with a sharp, shooting quality. He states his left arm pain is associated with numbness and tingling. He notes progressive left upper extremity weakness. He notes bilateral shoulder pain, worse on the left compared to the right. He notes difficulty with fine motor skills of the left hand. He states he can hold and grasp objects, but is unable to flip pages of a book or open zip-lock bags. The patient states his current symptoms worsen after all activity. I have explained to the patient that as their condition progresses it will cause further neurological deficits and eventual paralysis. Based on the patients imaging, physical exam, and the rapid progression and disabling nature of their symptoms, at this time I recommend surgery in the form of a: C4-5 TOTAL DISC REPLACEMENT. I discussed the risk and benefits of this procedure at length with Mr. James. The patient agreed to considered pursuing the procedure abovementioned. Prior to surgery, she should follow up with her PCP (Cardio, ID, IM etc) for clearance. Questions were invited and answered, and the patient wishes to proceed as outlined below. I did discuss with the patient after reviewed with him in preop his films and symptoms due to the revision status of the case and his CT results that he may need a fusion instead of disc replacement if replacement does not fit well or is not the right option for him and he agreed and was comfortable proceeding with either disc replacement or fusion. Risks and benefits of both were discussed at length with him in office and pre op. Currently, I am recommendin.C4-5 TOTAL DISC REPLACEMENT Description of Procedure: C4-5 ACDF The patient was seen and examined in the preoperative area. All preoperative protocols were followed. Informed consent was obtained, risks and benefits of the procedure were discussed at length. Risks including bleeding infection damage to the surrounding tissue and risk of reoperation were discussed with the patient. Risk of anesthesia up to and including was discussed with the patient. These are outlined in the risk review. They were willing to accept these risks and all the risks of surgery. The patient was given a weight-based dose of antibiotics in the form of 2 g Ancef. The patient was seen and evaluated by the anesthesia team who deemed them fit for surgery. The site was marked, the patient was willing to proceed with the procedure. The patient was transferred to the operative suite by the Department of anesthesia. They were then drifted off to sleep by the department anesthesia and GETA was performed. The patient tolerated this well. Stone catheter was placed by nursing staff, a-traumatically. Once confirmation of lines and ventilation the patient was transferred to a Supine [place] table very carefully. All bony prominences including wrists, elbows, axilla, chest, hips, and thighs, and feet were padded very well. Special attention was paid to the genitalia, and these were padded accordingly. SCDs were placed on bilateral lower extremities and were connected. Arms were well padded and placed at their side thumbs up. Once in position, again we confirmed good ventilation capabilities and that lines were running appropriately. The patients Cervical spine was then exposed. 1010s were placed outlining the incision site. Standard alcohol was used to clean the incision site and allowed to dry. C-arm was used to bio-jelly the patient and confirm level for incision which was marked with a skin marker. Operative briefing was performed with all teams and everyone in agreement to proceed. The patient was then prepped and draped in a normal sterile fashion. Timeout was then performed, and all parties agreed with the procedure to be performed. Transverse skin incision was then made on the right side of the patient's neck 3 cm and dissection taken down to the platysma which was split transversely. Sub platysma flap was made, and an interval identified between SCM and medial structures. Omohyoid was visualized and protected. Blunt dissection taken down to the anterior cervical fascia which was identified. The Esophagus was scarred to the anterior plate and was carefully and bluntly dissected off the plate without injury. There was extreme scar tissues here as well as osteophytes over the C4-5 disc space as well as plate. These were removed. Blunt probe was then placed and lateral image taken which confirmed levels for operation. These levels were then marked with a bovi. Subperiosteal dissection of the longis simus muscles were then done over these levels identifying uncovertebral joints bilaterally. Retractor was then placed deep to these muscles and held in place with a bed arm. [place] pins were placed into C4 and C5/6 region and Gentle distraction taken out over C4-5 now. Complete discectomy done at C4-5 using high speed shahbaz and curettes. Curettes were used to scrape the endplates free of cartilage and creating bleeding endplates. There was bone loss of the superior endplate of C5 anteriorly noted after the disc was removed creating an anterior slope to this endplate which was not ammendable to disc replacement due to the size as well stability of the implant. Burring of the inferior endplate of C4 was done and the posterior osteophyte. PLL was identified and 6-0 upbiting curette was used to release the PLL. 3-0 kerrison was then used to resect PLL and peroform b/l foraminotomies. Good decompression was accomplished. After this wasaccomplished including decompression, b/l foraminotomies and PLL resection, motors were run and were stable. Burring of endplates was minimal, osteophytes removed as described. Spacers were then sized and placed under lateral imaging. Cage selected, packed with graft and placed under lateral images. Once in position, meticulous hemostasis performed, and motors remained stable before and after cage placement. AP image confirmed good placement of cages. Wound was irrigated. Anterior screw fixation was then done. C4 and C5 were drilled and awled and screws measured and placed with good purchase. All locking mechanisms were set, and all screws had good purchase. Final AP and lateral images taken confirmed good placement of hardware and good reduction and sabianism of height. The wound was then irrigated copiously with NSS. Surgicel placed deep in the wound. A deep drain placed out a separate incision and sewed into place. Layered closure then performed with 3-0 Vicryl in the platysma and subQ tissue. 4-0 Strata fix in the subcuticular tissue. The wound was then cleaned, and dried and skin glue placed. Once glue dried 4x4 and a tegaderm was placed over the wound. The patient was then transferred back to their hospital bed a-traumatically. The drain continued to hold suction. They were placed in a hard collar. They were then awakened by the department of anesthesia having tolerated the procedure well without complications.
[2023-08-22 09:51] VITALS: TEMP 97.2
--- NOTE | 2023-08-22 12:03 | FL ---
EXAMINATION TYPE: FL guidance operating room, XR cervical spine limited Intraoperative/procedural flu oroscopic services were provided. Total fluoroscopy time is 14.2 seconds with a total of 4 submitted images to PACS. Please see the operative/procedural note for further details. DAP: 0.1359 Gycm2
[2023-08-22 13:15] VITALS: BP 120/80; PULSE 67; RESP 16
== END 2023-08-22 13:12 | disposition home or self-care (01) ==
LOC: OR 05:37
PROVIDERS: ATTEND Orthopaedic Surgery
DX: M47.22 Other spondylosis with radiculopathy, cervical region (principal); M48.02 Spinal stenosis, cervical region; M50.121 Cervical disc disorder at C4-C5 level with radiculopathy; M25.78 Osteophyte, vertebrae; Z98.1 Arthrodesis status; G89.29 Other chronic pain; I10 Essential (primary) hypertension; K21.9 Gastro-esophageal reflux disease without esophagitis; Z87.891 Personal history of nicotine dependence; Z79.899 Other long term (current) drug therapy
CPT/HCPCS: 22551; 22853; 22845; 95861; 95938; 95939; 86900; 86901; 86850; 72040; C1713; J2250; J1100; J2710; J0690; J2405; J2001; J3010; J1885; J1170; J2704; J1596

== ENCOUNTER 2024-08-26 17:49 | Emergency (ER) | payer MEDICARE ==
[2024-08-26 17:58] VITALS: RESP 18
--- NOTE | 2024-08-26 18:34 | ED ---
Abdominal Pain HPI - General Chief Complaint: Abdominal Pain Stated Complaint: N/Abd pain Time Seen by Provider: 08/26/24 18:04 Source: patient, RN notes reviewed Mode of arrival: wheelchair Limitations: no limitations - History of Present Illness Initial Comments: Quick note: This is a 58-year-old male presenting for abdominal pain starting at 0100 this morning. Patient states pain was sudden, preventing him from sleeping for 4 hours. Patient states he went to his PCP today with an unremarkable KUB and UA prior to being prescribed Bentyl with minimal relief. Patient states pain is intermittent and cramping, rate radiating to back with associated nausea and possible constipation. Patient states he also worked outdoors in the heat recently and suspects that he may be dehydrated. Denies fever, chills, chest pain, dyspnea, vomiting, diarrhea, dysuria, hematuria. - Related Data Home Medications Medication Instructions Recorded Confirmed Gabapentin [Neurontin] 300 mg PO TID 08/18/23 08/22/23 Previous Rx's Medication Instructions Recorded Cyclobenzaprine [Flexeril] 10 mg PO TID #40 tab 08/22/23 Gabapentin 300 mg PO TID 30 Days #90 cap 08/22/23 HYDROcodone/APAP 10-325MG [[place]las 1 tab PO Q4HR PRN 7 Days #42 tab 08/22/23 10-325] cefaDROXiL [Duricef] 500 mg PO Q12HR 3 Days #6 cap 08/22/23 Allergies Allergy/AdvReac Type Severity Reaction Status Date / Time No Known Allergies Allergy Verified 08/22/23 06:30 Review of Systems ROS Statement: Those systems with pertinent positive or pertinent negative responses have been documented in the HPI. ROS Other: All systems not noted in ROS Statement are negative. Past Medical History Past Medical History: GERD/Reflux, Osteoarthritis (OA), Skin Disorder Additional Past Medical History / Comment(s): steroids Feb 2019, hx IBS, occ psoriasis, left inguinal hernia, chronic neck pain, has been told has very low resting heart rate(40s), recent sinus infection-was on rx and now resolved History of Any Multi-Drug Resistant Organisms: None Reported Past Surgical History: Cholecystectomy, Orthopedic Surgery Additional Past Surgical History / Comment(s): rt hand surgery, bijal. carpal tunnel, rt shoulder arthroscopy, colonoscopy, right knee arthroscopy Past Anesthesia/Blood Transfusion Reactions: Motion Sickness Additional Past Anesthesia/Blood Transfusion Reaction / Comment(s): CLAUSTROPHOBIA Past Psychological History: No Psychological Hx Reported Smoking Status: Former smoker Past Alcohol Use History: None Reported Past Drug Use History: None Reported - Past Family History Brother(s) Family Medical History: Cancer, Congestive Heart Failure (CHF), Deep Vein Thrombosis (DVT) General Exam Limitations: no limitations General appearance: alert, in no apparent distress Head exam: Present: atraumatic, normocephalic, normal inspection Eye exam: Present: normal appearance, PERRL, EOMI. Absent: scleral icterus, conjunctival injection, periorbital swelling ENT exam: Present: normal exam, mucous membranes moist Neck exam: Present: normal inspection. Absent: tenderness, meningismus, lymphadenopathy Respiratory exam: Present: normal lung sounds bilaterally. Absent: respiratory distress, wheezes, rales, rhonchi, stridor Cardiovascular Exam: Present: regular rate, normal rhythm, normal heart sounds. Absent: systolic murmur, diastolic murmur, rubs, gallop, clicks GI/Abdominal exam: Present: soft, diminished bowel sounds, hypoactive bowel sounds. Absent: distended, tenderness (Nontender throughout), guarding, rebound, rigid Extremities exam: Present: normal inspection, full ROM, normal capillary refill. Absent: tenderness, pedal edema, joint swelling, calf tenderness Back exam: Present: normal inspection Neurological exam: Present: alert, oriented X3, CN II-XII intact Psychiatric exam: Present: normal affect, normal mood Skin exam: Present: warm, dry, intact, normal color. Absent: rash Course Vital Signs 08/26/24 17:55 Temperature 98.1 F Pulse Rate 54 L Respiratory 18 Rate Blood Pressure 131/81 Medical Decision Making - Medical Decision Making Was pt. sent in by a medical professional or institution (, PA, AGENCY LEGAL COUNSEL, urgent care, hospital, or longterm...) When possible be specific @ -[No] Did you speak to anyone other than the patient for history (EMS, parent, family, police, friend...)? What history was obtained from this source @ -[No] Did you review nursing and triage notes (agree or disagree)? Why? @ -[I reviewed and agree with nursing and triage notes] Were old charts reviewed (outside hosp., previous admission, EMS record, old EKG, old radiological studies, urgent care reports/EKG's, longterm records)? Report findings @ -[No old charts were reviewed] Differential Diagnosis (chest pain, altered mental status, abdominal pain women, abdominal pain men, vaginal bleeding, weakness, fever, dyspnea, syncope, headache, dizziness, GI bleed, back pain, seizure, CVA, palpatations, mental health, musculoskeletal)? @ -Differential Abdominal Pain Men: Appendicitis, cholecystitis, diverticulosis, ischemic bowel, pancreatitis, hepatitis, UTI, gastroenteritis, AAA, incarcerated hernia, bowel obstruction, constipation, inflammatory bowel, hepatitis, peptic ulcer disease, splenic infarction, perforated viscus, testicular torsion, this is not meant to be an all-inclusive list EKG interpreted by me (3pts min.). @ -Not done X-rays interpreted by me (1pt min.). @ -[None done] CT interpreted by me (1pt min.). @ -[None done] U/S interpreted by me (1pt. min.). @ -[None done] What testing was considered but not performed or refused? (CT, X-rays, U/S, labs)? Why? @ -AP CT scan recommended to patient for further evaluation of abdominal pain. Patient declined at this time. What meds were considered but not given or refused? Why? @ -[None] Did you discuss the management of the patient with other professionals (professionals i.e. , PA, AGENCY LEGAL COUNSEL, lab, RT, psych nurse, social worker health services, electric organ checker, teacher, chief program officer, correctional counselor/case manager)? Give summary @ -[No] Was smoking cessation discussed for >3mins.? @ -[No] Was critical care preformed (if so, how long)? @ -[No] Were there social determinants of health that impacted care today? How? (Homeles sness, low income, unemployed, alcoholism, drug addiction, transportation, low edu. Level, literacy, decrease access to med. care, usp, rehab)? @ -[No] Was there de-escalation of care discussed even if they declined (Discuss DNR or withdrawal of care, Hospice)? DNR status @ -[No] What co-morbidities impacted this encounter? (DM, HTN, Smoking, COPD, CAD, Cancer, CVA, ARF, Chemo, Hep., AIDS, mental health diagnosis, sleep apnea, morbid obesity)? @ -[None] Was patient admitted / discharged? Hospital course, mention meds given and route, prescriptions, significant lab abnormalities, going to OR and other pertinent info. @ -[hospital course] Undiagnosed new problem with uncertain prognosis? @ -[No] Drug Therapy requiring intensive monitoring for toxicity (Heparin, Nitro, Insulin, Cardizem)? @ -[No] Were any procedures done? @ -[No] Diagnosis/symptom? @ -Abdominal colic Acute, or Chronic, or Acute on Chronic? @ -Acute Uncomplicated (without systemic symptoms) or Complicated (systemic symptoms)? @ -Uncomplicated Side effects of treatment? @ -[No] Exacerbation, Progression, or Severe Exacerbation? @ -[No] Poses a threat to life or bodily function? How? (Chest pain, [place], [place], pneumonia, PE, COPD, DKA, ARF, appy, cholecystitis, CVA, Diverticulitis, Homicidal, Suicidal, threat to staff... and all critical care pts) @ -[No] - Lab Data Result diagrams: 08/26/24 18:55 08/26/24 18:55 Lab Results 08/26/24 08/26/24 08/26/24 Range/Units 18:55 18:55 18:55 WBC 9.63 (4.50-10.00) 10*3/uL RBC 4.52 (4.40-5.60) 10*6/uL Hgb 14.6 (13.0-17.0) g/dL Hct 40.9 (39.6-50.0) % MCV 90.5 (80.0-97.0) fL MCH 32.3 H (27.0-32.0) pg MCHC 35.7 (32.0-37.0) g/dL Plt Count 136 L (140-440) 10*3/uL MPV 10.3 (9.5-12.2) fL Immature Gran % (Auto) 0.3 % Neutrophils % 84.0 % Lymphocytes % 9.6 % Monocytes % 5.3 % Eosinophils % 0.3 % Basophils % 0.5 % Immature Gran # 0.03 (0.00-0.04) 10*3/uL Neutrophils # 8.09 H (1.80-7.70) 10*3/uL Lymphocytes # 0.92 (0.90-5.00) 10*3/uL Monocytes # 0.51 (0.20-1.00) 10*3/uL Eosinophils # 0.03 L (0.04-0.35) 10*3/uL Basophils # 0.05 (0.00-0.10) 10*3/uL Immature Plt Fraction 3.4 (1.1-6.1) % Sodium 137 (137-145) mmol/L Potassium 4.2 (3.5-5.1) mmol/L Chloride 102 (98-107) mmol/L Carbon Dioxide 26 (22-30) mmol/L Anion Gap 9 mmol/L BUN 16 (9-20) mg/dL Creatinine 0.90 (0.66-1.25) mg/dL Est GFR (CKD-EPI)AfAm >90 (>60 ml/min/1.73 sqM) Est GFR (CKD-EPI)NonAf >90 (>60 ml/min/1.73 sqM) Glucose 108 H (74-99) mg/dL Plasma Lactic Acid Praveen 0.8 (0.7-2.0) mmol/L Calcium 9.6 (8.4-10.2) mg/dL Total Bilirubin 1.1 (0.2-1.3) mg/dL AST 31 (17-59) U/L ALT 24 (4-49) U/L Alkaline Phosphatase 70 (38-126) U/L Total Protein 6.9 (6.3-8.2) g/dL Albumin 4.6 (3.5-5.0) g/dL Amylase 44 (30-110) U/L Lipase 60 (23-300) U/L Disposition Clinical Impression: Abdominal colic Disposition: HOME SELF-CARE Condition: Fair Instructions (If sedation given, give patient instructions): Abdominal Pain (ED) Additional Instructions: Limit diet to bananas, rice, applesauce, tea, toast. Small sips of water and Gatorade/Pedialyte. Follow-up with PCP/gastroenterology for any ongoing abdominal cramping. Return to ER if experiencing worsening pain. Is patient prescribed a controlled substance at d/c from ED?: No Referrals: Gavin Graham DO [Primary Care Provider] - 1-2 days Soniya Moreau MD [STAFF PHYSICIAN] - 1-2 days Time of Disposition: 20:50
[2024-08-26 19:08] LABS: Basophils # (A) 0.05 10*3/uL (0.00-0.10); Basophils % (A) 0.5 %; Eosinophils # (A) 0.03 10*3/uL (0.04-0.35); Eosinophils % (A) 0.3 %; HCT 40.9 % (39.6-50.0); HGB 14.6 g/dL (13.0-17.0); Immature Platelet Fraction 3.4 % (1.1-6.1); Lymphocytes # (A) 0.92 10*3/uL (0.90-5.00); Lymphocytes % (A) 9.6 %; MCH 32.3 pg (27.0-32.0); MCHC 35.7 g/dL (32.0-37.0); MCV 90.5 fL (80.0-97.0); Monocytes # (A) 0.51 10*3/uL (0.20-1.00); Monocytes % (A) 5.3 %; Neutrophils # (A) 8.09 10*3/uL (1.80-7.70); Neutrophils % (A) 84.0 %; Platelet Count 136 10*3/uL (140-440); RBC 4.52 10*6/uL (4.40-5.60); RDW 12.4 % (11.5-14.5); WBC 9.63 10*3/uL (4.50-10.00)
[2024-08-26 19:17] LABS: ALT 24 U/L (4-49); AST 31 U/L (17-59); African American GFR (CKD) >90 (>60 ml/min/1.73 sqM); Albumin 4.6 g/dL (3.5-5.0); Alkaline Phosphatase 70 U/L (38-126); Amylase 44 U/L (30-110); Anion Gap 9 mmol/L; Blood Urea Nitrogen 16 mg/dL (9-20); Calcium 9.6 mg/dL (8.4-10.2); Carbon Dioxide 26 mmol/L (22-30); Chloride 102 mmol/L (98-107); Glucose 108 mg/dL (74-99); Lipase 60 U/L (23-300); Non-African American GFR(CKD) >90 (>60 ml/min/1.73 sqM); Potassium 4.2 mmol/L (3.5-5.1); Sodium 137 mmol/L (137-145); Total Protein 6.9 g/dL (6.3-8.2)
[2024-08-26 21:40] VITALS: BP 127/73; PULSE 59; TEMP 97.7
== END 2024-08-26 21:40 | disposition home or self-care (01) ==
LOC: EC 17:49
DX: R10.84 Generalized abdominal pain (principal); Z87.891 Personal history of nicotine dependence
CPT/HCPCS: 36415; 80053; 82150; 83605; 83690; 85025; 99283

== ENCOUNTER → 2024-08-26 | Outpatient (CLI) | payer MEDICARE ==
--- NOTE | 2024-08-26 15:51 | XR ---
EXAMINATION TYPE: XR abdomen 1V DATE OF EXAM: 08/26/2024 3:39 PM COMPARISON: 05/23/2021. CLINICAL INDICATION: Male, 58 years old with history of R1084,R110 GEN ABD PAIN,NAUSEA; YCH TECHNIQUE: One radiographic view of the abdomen was obtained. FINDINGS: The bowel gas pattern is nonspecific without dilated loops of small or large bowel. . Fecal material and gas are demonstrated throughout the colon and rectum. There is no evidence for organome murphy or pneumoperitoneum. No acute osseous process. No abnormal calcifications are present. Left hi p arthroplasty is intact. IMPRESSION: Nonspecific bowel gas pattern without radiographic evidence for acute process. [facility], , 08/26/2024 3:49 PM
== END | disposition home or self-care (01) ==
LOC: RADXRYALE 15:24
PROVIDERS: ATTEND Physician Assistant
DX: R10.84 Generalized abdominal pain (principal); R11.10 Vomiting, unspecified
CPT/HCPCS: 74018